=== PATIENT | male | born 1970 | race Caucasian/White ===

== ENCOUNTER → 2018-07-17 10:22 | Outpatient (REF) | payer MEDICAID, SELFPAY ==
[2018-07-17 14:05] LABS: Basophils % 0.3 % (0.1-2.0); Eosinophils # 0.2 K/mm3 (0.0-0.4); Eosinophils % 1.5 % (0.1-12.0); Hematocrit 50.3 % (42.0-52.0); Hemoglobin 16.7 g/dL (14.1-18.0); Lymphocytes # 1.7 K/mm3 (0.7-4.5); Mean Corpuscular HGB Conc 33.1 g/dL (31.8-35.4); Mean Corpuscular Hemoglobin 29.4 pg (27.0-31.2); Mean Corpuscular Volume 88.6 fl (80-94); Mean Platelet Volume 9.4 fl (7.4-10.4); Monocytes # 0.5 K/mm3 (0.1-1.0); Monocytes % 3.9 % (1.7-9.3); Neutrophils % 81.4 % (37.0-80.0); Platelet Count 318 K/mm3 (142-424); Red Blood Count 5.68 M/mm3 (4.60-6.20); Red Cell Distribution Width 13.9 % (11.5-17.5); White Blood Count 13.5 K/mm3 (4.8-10.8)
[2018-07-17 14:38] LABS: Alanine Aminotransferase 34 U/L (12-78); Albumin/Globulin Ratio 1.1 (1.1-1.8); Alkaline Phosphatase 107 U/L (46-116); Anion Gap 13.6 mEq/L (5-15); Aspartate Amino Transferase 19 U/L (15-37); Bilirubin,Total 0.4 mg/dL (0.2-1.0); Blood Urea Nitrogen 11 mg/dL (7-18); Calcium 8.9 mg/dL (8.5-10.1); Carbon Dioxide 26 mmol/L (21.0-32.0); Chloride 105 mmol/L (98-107); Chol/HDL Ratio 6.3 (1-3.5); Cholesterol 244 mg/dL (140-200); Creatinine,Serum 0.86 mg/dL (0.70-1.30); Estimated Glomerular Filt Rate 94 ml/min (>60); GFR (African American) 114 ML/MIN (>60); Globulin 3.6 gm/dl (1.3-3.2); Glucose 114 mg/dL (74-106); HDL Cholesterol 39 mg/dL (27-67); LDL Cholesterol 145 mg/dL (0-130); Potassium 4.6 mmoL/L (3.5-5.1); Sodium 140 mmol/L (136-145); T4 (Thyroxine) 5.3 ug/dl (4.7-13.3); Thyroid Stimulating Hormone 0.79 uIU/ml (0.358-3.740); Total Protein,Serum 7.6 gm/dL (6.4-8.2); Triglycerides 298 mg/dL (30-200); VLDL Cholesterol 60 mg/dL (0-40)
[2018-07-17 14:56] LABS: Hemoglobin A1C 5.8 % (0.0-7.0)
[2018-07-18 19:06] LABS: PSA, Free 0.22 ng/mL; Prostate Specific Ag 1.9 ng/mL (0.0-4.0); Vitamin D 25 Hydroxy 24.4 ng/mL (30.0-100.0)
== END ==
LOC: LAB 10:22
PROVIDERS: Visit Provider Nurse Practitioner Family
DX: R53.1 Weakness (principal); R51 Headache; R42 Dizziness and giddiness; R41.0 Disorientation, unspecified; I10 Essential (primary) hypertension
CPT/HCPCS: 80053; 80061; 82652; 83036; 84153; 84154; 84436; 84443; 85025

== ENCOUNTER → 2019-02-27 09:52 | Outpatient (CLI) | payer MEDICAID, SELFPAY ==
--- NOTE | 2019-02-27 10:01 | CT_ITS ---
CT chest w con HISTORY: ITS.REASON: RESTAGING LUNG CA ORDERING PHYSICIAN: Bryan Shaffer PATIENT AGE: 49 years COMPARISON: No prior studies available for comparison at this facility. Patient has had previous CT studies & therapy at . Technique: 75 cc. Optiray 350 IV contrast utilized. Axial images obtained. Sagittal and coronal reformatted images are also generated and reviewed. All CT scans at the facility use one or more dose reduction, viz: automated exposure control, ma/kV adjustment per patient size (including targeted exams where dose is matched to indication, i.e. head), or iterative reconstruction technique. FINDINGS: No prior studies for comparison. Previous studies apparently at [facility]. No significant mediastinal nor hilar adenopathy. No supraclavicular adenopathy. No axillary adenopathy. Enhancement is most optimal aorta. Normal caliber 3.5 cm. Heart appears normal in size. Coronary artery calcification most notable at LAD Scant pericardial fluid in inferior/anterior. Not significant. Right lung Elongated density is seen at the superior aspect superior segment RLL, axial image 39, . It measures just over 2 cm length on axial image x up to 6 mm AP & 9 mm height on sagittal view . There is some minimal linear scarring associated. May be residual from treated lesion possiblyq. Prior studies of the would be helpful to for comparison . There is a calcified 4 mm granuloma at right lung base just above right hemidiaphragm. Left Lower Lobe The density along the pleura, slightly nodular densities within this area at the medial aspect left lung base. Appears very similar to studies from CT abdomen 2015 which includes this area . Only slightly more pronounced The pleural-based slightly nodular area of density measures up to 3 cm AP overall x 2.4 cm height. An up to 14 mm wide. There is area of nodularity more posteriorly which measures 10 mm diameter with smaller area more anteriorly. These latter densities were seen on the 2015 CT abdomen with only incremental progression in interval. Unimpressive It could reflect a area of old scarring but requires correlation to the more recent [facility] studies Minimal minor central airway thickening. Upper abdomen. No significant findings. \ . Diffuse fatty changes of liver . Adrenals normal Pleural Spaces: No pleural thickening or effusion.. No evidence of pneumothorax. Bony Structures: No acute bony lesions. No rib or osseous lesions evident . No metastatic disease. Mild accentuated kyphosis thoracolumbar region. -----IMPRESSION 1. Elongated parenchymal density at the posterior/superior-most aspect of the superior segment RLL. . Measures roughly 20 mm length x 6 mm x 9 mm height. ... No prior studies for comparison. Modest feature overall-Possibly reflects treated lesion 2.. Density with minimal nodularity at far medial left lung base.. Similar to 2015 with Only scant incrementally progression..-Thus it may reflect scarring. No prominent change since that 2014.... Again correlation to recent [facility] studies would be helpful to correlate with their studies. . 3. No significant mediastinal nor hilar adenopathy.. ... Upper most abdomen unremarkable. Adrenals normal. ... No chest wall lesions. ...
== END ==
PROVIDERS: PCP Emergency Medicine; Visit Provider Internal Medicine Hematology & Oncology
DX: C34.90 Malignant neoplasm of unspecified part of unspecified bronchus or lung (principal); C71.9 Malignant neoplasm of brain, unspecified; D49.6 Neoplasm of unspecified behavior of brain
CPT/HCPCS: 71260; Q9967

== ENCOUNTER 2019-10-05 07:48 | Observation (INO) ==
[2019-10-05 08:32] LABS: Basophils % 0.2 % (0.1-2.0); Eosinophils # 0.5 K/mm3 (0.0-0.4); Eosinophils % 2.7 % (0.1-12.0); Hematocrit 38.1 % (42.0-52.0); Hemoglobin 12.8 g/dL (14.1-18.0); Lymphocytes # 1.1 K/mm3 (0.7-4.5); Lymphocytes % 6.2 % (10-50); Mean Corpuscular HGB Conc 33.5 g/dL (31.8-35.4); Mean Corpuscular Volume 94.7 fl (80-94); Mean Platelet Volume 8.2 fl (7.4-10.4); Monocytes # 0.6 K/mm3 (0.1-1.0); Monocytes % 3.3 % (1.7-9.3); Neutrophils # 15.7 K/mm3 (1.8-7.8); Neutrophils % 87.6 % (37.0-80.0); Platelet Count 589 K/mm3 (142-424); Red Blood Count 4.03 M/mm3 (4.60-6.20); Red Cell Distribution Width 15.4 % (11.5-17.5); White Blood Count 17.9 K/mm3 (4.8-10.8)
[2019-10-05 08:47] LABS: Eosinophils % 3 % (0-3); Lymphocytes % 4 % (10-50); Monocytes % 6 % (2-9); Neutrophils % 87 % (42-76); Total Cells Counted 100
[2019-10-05 08:48] LABS: RBC Morphology Normal
[2019-10-05 08:54] LABS: Alanine Aminotransferase 22 U/L (12-78); Albumin Level 3.6 gm/dL (3.4-5.0); Albumin/Globulin Ratio 0.8 (1.1-1.8); Alkaline Phosphatase 69 U/L (46-116); Anion Gap 17.7 mEq/L (5-15); Aspartate Amino Transferase 25 U/L (15-37); Bilirubin,Total 0.4 mg/dL (0.2-1.0); Blood Urea Nitrogen 31 mg/dL (7-18); Calcium 9.6 mg/dL (8.5-10.1); Carbon Dioxide 21 mmol/L (21.0-32.0); Chloride 95 mmol/L (98-107); Globulin 4.3 gm/dl (1.3-3.2); Glucose 145 mg/dL (74-106); Sodium 129 mmol/L (136-145); Total Protein,Serum 7.9 gm/dL (6.4-8.2)
--- NOTE | 2019-10-05 09:21 | Emergency Department Note ---
ED Disposition Clinical Impression: Metabolic acidosis, Hyponatremia, Intractable vomiting, Infectious diarrhea, Infection due to Norovirus species Disposition: Admitted As Inpatient Condition on Discharge: Serious Referrals: Mani Lund MD [Primary Care Provider] - - Critical Care Critical Care Time: No Attestation: On 10/05/19, the high probability of a clinically significant, sudden or life threatening deterioration of the following system(s) required my full and direct attention, intervention and personal management. The time I documented below is in addition to time spent performing reported procedures but includes the following listed in this critical care notation. Medical Decision Making - Medical Records Medical records reviewed: Yes: I reviewed the patient's medical records. - Shawn Inquiry Pt receiving controlled substance: No Vital Signs: 10/05/19 07:49 10/05/19 08:10 10/05/19 08:44 Temperature 98.2 F Temperature Source Oral Pulse Rate [Left Radial] 130 H 110 H 110 H Respiratory Rate 28 H 24 Blood Pressure [Right Arm] 99/66 L 71/39 L 105/64 L Blood Pressure Mean [Right Arm] 77 49 77 Blood Pressure Source [Right Arm] Automatic Cuff Blood Pressure Position [Right Arm] Sitting Sitting Supine 02 Sat by Pulse Oximetry 98 100 Oxygen Delivery Method Room Air Room Air 10/05/19 09:14 10/05/19 09:26 10/05/19 10:40 Temperature Temperature Source Pulse Rate [Left Radial] 104 H 104 H 107 H Respiratory Rate Blood Pressure [Right Arm] 108/76 L 111/58 L 128/89 Blood Pressure Mean [Right Arm] 86 75 102 Blood Pressure Source [Right Arm] Automatic Cuff Automatic Cuff Blood Pressure Position [Right Arm] Sitting Supine 02 Sat by Pulse Oximetry 100 99 Oxygen Delivery Method Room Air Room Air 10/05/19 11:05 Temperature Temperature Source Pulse Rate [Left Radial] 107 H Respiratory Rate Blood Pressure [Right Arm] 153/93 H Blood Pressure Mean [Right Arm] 113 Blood Pressure Source [Right Arm] Blood Pressure Position [Right Arm] Sitting 02 Sat by Pulse Oximetry 100 Oxygen Delivery Method Room Air - Lab Data Lab results reviewed: Yes: I reviewed the patient's lab results. Lab Results 10/05/19 07:55: Stl Aeromonas (PCR) Not detected, Stl C. cayetanensis PCR Not detected, Stool Rotavirus (PCR) Not detected, Stl Adenov F 40/41 PCR Not detected, Stool Astrovirus (PCR) Not detected, Stool Campylobacter PCR Not detected, Stl C.difficile Tox PCR Not detected, Stool Cryptosporidium PCR Not detected, Stl E.coli Shiga Tox PCR Not detected, Stool E coli O157 PCR Not detected, Stl Enterotoxigenic E PCR Not detected, Stool EPEC (PCR) Not detected, Stool EAEC (PCR) Not detected, Stl E. histolytica PCR Not detected, Stool Giardia Lamblia PCR Not detected, Stool Salmonella PCR Not detected, Stool Sapovirus (PCR) Not detected, Stl P. shigelloides PCR Not detected, Stl Shige lla/EIEC PCR Not detected, St Y.enterocolitica PCR Not detected, Stool Vibrio (PCR) Not detected, Stl Vibrio cholerae PCR Not detected, Stl Norovirus GI/GII PCR Detected A 10/05/19 08:00: WBC 17.9 H, RBC 4.03 L, Hgb 12.8 L, Hct 38.1 L, MCV 94.7 H, MCH 31.7 H, MCHC 33.5, RDW 15.4, Plt Count 589 H, MPV 8.2, Neut % (Auto) 87.6 H, Lymph % (Auto) 6.2 L, [place] % (Auto) 3.3, Eos % (Auto) 2.7, Baso % (Auto) 0.2, Neut # (Auto) 15.7 H, Lymph # (Auto) 1.1, [place] # (Auto) 0.6, Eos # (Auto) 0.5 H, Baso # (Auto) 0.0, Total Counted 100, Neutrophils % (Manual) 87 H, Lymphocytes % (Manual) 4 L, Monocytes % (Manual) 6, Eosinophils % (Manual) 3, Platelet Estimate Normal, RBC Morphology Normal 10/05/19 08:00: Sodium 129 L, Potassium 4.7, Chloride 95 L, Carbon Dioxide 21, Anion Gap 17.7 H, BUN 31 H, Creatinine 2.41 H, Estimated Creat Clear 51, Elizabeth mated GFR 29 L, Est GFR ( Amer) 35 L, Glucose 145 H, Calcium 9.6, Total Bilirubin 0.4, AST 25, ALT 22, Alkaline Phosphatase 69, Troponin I < 0.02, Total Protein 7.9, Albumin 3.6, Globulin 4.3 H, Albumin/Globulin Ratio 0.8 L 10/05/19 08:00: Lactate 3.3 H 10/05/19 10:10: Urine Color Yellow, Urine Appearance Clear, Urine pH 5.5, Ur Specific [place] 1.020, Urine Protein Negative, Urine Glucose (UA) Negative, Urine Ketones Negative, Urine Blood Negative, Urine Nitrate Negative, Urine Bilirubin Negative, Urine Urobilinogen 0.2, Ur Leukocyte Esterase Negative, Ur Squamous Epith Cells Occasional, Urine Bacteria Trace, Hyaline Casts 10-20 Result diagrams: 10/05/19 08:00 10/05/19 08:00 Orders (Tests/Meds): ED MEDICATIONS Discontinued Medications Generic Name Dose Route Start Last Admin Trade Name Freq PRN Reason Stop Dose Admin Hydromorphone HCl 1 mg 10/05/19 09:06 10/05/19 09:07 Dilaudid 2mg/Ml Syringe IV 10/05/19 09:07 1 mg ONCE ONE Administration Sodium Chloride 1,000 mls @ 999 mls/hr 10/05/19 08:45 10/05/19 08:20 Sod Chlor 0.9% 1000ml Bag IV 10/05/19 09:45 999 mls/hr .Q1H1M AARON Administration Sodium Chloride 1,000 mls @ 999 mls/hr 10/05/19 09:15 10/05/19 09:07 Sod Chlor 0.9% 1000ml Bag IV 10/05/19 10:15 999 mls/hr .Q1H1M AARON Administration Piperacillin Sod/Tazobactam 50 mls @ 100 mls/hr 10/05/19 09:15 10/05/19 09:23 Sod 3.375 gm/ Sodium Chloride IV 10/19/19 09:14 Not Given Q6H AARON Protocol Ertapenem 1 gm/ Sodium 50 mls @ 100 mls/hr 10/05/19 09:24 10/05/19 09:33 Chloride IV 10/05/19 09:25 100 mls/hr ONCE ONE Administration Protocol Sodium Chloride 1,000 mls @ 999 mls/hr 10/05/19 09:45 10/05/19 09:39 Sod Chlor 0.9% 1000ml Bag IV 10/05/19 10:45 999 mls/hr .Q1H1M AARON Administration Ondansetron HCl 4 mg 10/05/19 08:33 10/05/19 08:35 Zofran 4mg/2ml Vial IV 10/05/19 08:34 4 mg ONCE ONE Administration Ondansetron HCl 4 mg 10/05/19 09:06 10/05/19 09:07 Zofran 4mg/2ml Vial IV 10/05/19 09:07 4 mg ONCE ONE Administration Promethazine HCl 25 mg 10/05/19 08:34 10/05/19 08:37 Phenergan 25mg/Ml 1ml Vial IV 10/05/19 08:35 25 mg ONCE ONE Administration Sodium Chloride 25 ml 10/05/19 08:34 10/05/19 08:37 Sod Chlor 0.9% 25ml Bag IV 10/05/19 08:35 25 ml ONCE ONE Administration ORDERS Category Date Time Status CT abdomen pelvis wo con Stat Cat Scan 10/05/19 08:39 Taken Chest XR -- portable [XR chest portable] Stat Exams 10/05/19 08:17 Taken Troponin I Q3H Lab 10/05/19 11:30 Ordered Troponin I Q3H Lab 10/05/19 14:30 Ordered Blood Culture Stat Micro 10/05/19 08:06 Received - CT Data CT Scan: Abdomen, Pelvis Time Received: 11:[address] Reviewed: Yes: I have reviewed the patient's CT results Preliminary Findings: Abnormal Findings Narrative: Multiple loops of mildly prominent fluid-filled small bowel bowel measuring up to 2.8 cm in diameter. Findings could represent ileus although a component of partial obstruction cannot be excluded. - ECG Data Tracing #1 I reviewed this ECG and interpreted as documented below: Sinus tachycardia at a rate of 111 otherwise normal EKG. ECG initial impression date: 10/05/19 ECG initial impression time: 08:29 Normal Sinus Rhythm: Yes (Sinus tachycardia otherwise normal EKG) Nausea/Vomiting/Diarrhea HPI - General Chief complaint: Nausea/Vomiting/Diarrhea Stated complaint: Vomiting Time Seen by Provider: 10/05/19 07:50 Mode of Arrival: Ambulatory Limitations: No Limitations Description of Symptoms (Recalled from ER Triage Doc. by RN): to ed per pvt car with c/o diarrhea, vomiting starting this am. pt with hx of lymphoma currently getting chemo last tx 3 weeks ago. pt denies sick contacts. - History of Present Illness MD complaint: nausea, vomiting, diarrhea, abdominal pain Onset (ago): hour(s) (4) Description of Vomiting: food contents Associated Abdominal Pain: Yes Location of pain: diffuse Severity: severe Quality: cramping Consistency: constant Relieving factors: none Exacerbating factors: none Associated symptoms: malaise, nausea/vomiting, weakness - Related Data Home Medications Medication Instructions Recorded Confirmed RX: Folic Acid [Folic Acid 1mg 1 mg PO DAILY 10/05/19 10/05/19 tablet] RX: Lisinopril [Lisinopril 20mg 20 mg PO PM 10/05/19 10/05/19 Tab] RX: Omeprazole 40 mg PO DAILY 10/05/19 10/05/19 RX: diazePAM [Valium] 5 mg PO BID 10/05/19 10/05/19 RX: hydroCHLOROthiazide [HCTZ 25mg See Rx Instructions .ROUTE .COMPLEX 10/05/19 10/05/19 tab] Previous Rx's Medication Instructions Recorded metoclopramide 10 mg tablet 10 mg PO Q8H PRN #30 tab 06/29/19 ondansetron HCl 4 mg tablet 4 mg PO Q6H PRN #30 tab 06/29/19 promethazine 25 mg tablet 25 mg PO Q6H PRN #30 tab 06/29/19 acetaminophen 325 mg capsule 325 mg PO Q4H PRN #60 cap 07/01/19 sildenafil (pulmonary 20 mg PO DAILY PRN #10 tab 07/17/19 hypertension) 20 mg tablet hydrocodone 7.5 mg-acetaminophen 1 tab PO BID PRN #60 tab 09/14/19 325 mg tablet Allergies Allergy/AdvReac Type Severity Reaction Status Date / Time codeine [CODEINE] Allergy Unknown Verified 09/14/19 10:11 Penicillins [PENICILLINS] Allergy Unknown Verified 09/14/19 10:11 [facility] History - Hepatitis A Screen Drug use history?: No High risk sexual behaviors?: No History of sexually transmitted infection?: No Currently employed?: No Childcare worker?: No Do you have indoor plumbing?: Yes Do you have electricity?: Yes Attestation statement:: This patient has been screened for Hepatitis A risk factors. I have reviewed the patient's past medical history: Yes Medical History: Reports:: Cancer, Hypertension Denies:: Diabetes Mellitus Type 1, Diabetes Mellitus Type 2 Laterality Cases: Bilateral: Tonsillectomy Other Surgeries: Yes: No Previous Surgery, Cancer Surgery, Other Amputation: No Fractures: No Comment: brain surgery due to cancer, Has had radiation and Chemo - Social History Smoking Status: Former smoker Tobacco Type: cigarettes # Packs/Day (cigarettes): 2 Alcohol Intake: never Alcohol Intake Frequency:: holidays/special occasions only Substance Use Type: marijuana Occupational Status: disabled Family Hx:: Diabetes ROS Obtained: Yes All systems reviewed & no additional complaints - Constitutional Constitutional: Reports fatigue, Reports malaise - Eyes Eyes: Reports system reviewed and no additional complaints, except as docu - ENT Ears, Nose, Mouth, and Throat: Reports system reviewed and no additional complaints, except as docu - Cardiovascular Cardiovascular: Reports system reviewed and no additional complaints, except as docu - Respiratory Respiratory: Yes system reviewed and no additional complaints, except as docu - Gastrointestinal Gastrointestingal: Reports: abdominal pain, diarrhea, nausea, vomiting - Genitourinary Male Genitourinary: Reports system reviewed and no additional complaints, except as docu - Musculoskeletal Musculoskeletal: Reports system reviewed and no additional complaints, except as docu - Integumentary/Breasts Skin/Breast: Reports system reviewed and no additional complaints, except as docu - Neurologic Neurologic: Reports system reviewed and no additional complaints, except as docu - Endocrine Endocrine: Reports system reviewed and no additional complaints, except as docu - Hematologic/Lymphatic Henatologic/Lymphatic: Reports system reviewed and no additional complaints, except as docu - Allergic/Immunologic Allergic/Immunologic: Reports system reviewed and no additional complaints, except as docu Physical Exam - General General appearance: alert, in no apparent distress - Head Head exam: atraumatic, normocephalic, normal inspection - Eye Eye exam: Present: normal appearance, PERRL, EOMI - ENT ENT exam: Present: normal exam, normal oropharynx, mucous membranes moist, TM's normal bilaterally, normal external ear exam - Neck Neck exam: Present: normal inspection, full ROM, trachea midline. Absent: meningismus, lymphadenopathy - Chest Chest inspection: Present: normal inspection, symmetric chest wall rise. Absent: tenderness - Respiratory Respiratory exam: Present: normal lung sounds bilaterally. Absent: respiratory distress - Cardiovascular Cardiovascular exam: Present: normal rhythm, tachycardia, normal heart sounds. Absent: systolic murmur, diastolic murmur, rubs, gallop, JVD - Abdominal Exam Abdominal exam: Present: soft, tenderness, diminished bowel sounds. Absent: distention, guarding Abdominal tenderness: Present: diffuse - Extremities Exam Extremities exam: Present: normal inspection, full ROM, normal capillary refill. Absent: calf tenderness - Back Exam Back exam: Present: normal inspection. Absent: tenderness - Neurological Exam Neurological exam: Present: alert, oriented X3, CN II-XII intact, normal gait - Psychiatric Psychiatric exam: Present: normal affect, normal mood - Skin Skin exam: Present: warm, dry, intact, normal color - Lymphatic Lymphatic Findings: no adenopathy
[2019-10-05 10:18] LABS: Microscopic, Urine URINE MICROSCOPIC (MICROSCOPIC)
[2019-10-05 10:34] LABS: Appearance,Urine CLEAR (Clear); Bilirubin,Urine Negative (Negative); Blood, Urine Negative (Negative); Color,Urine YELLOW (Yellow); Glucose,Urine (UA) Negative (Negative); Ketones,Urine Negative (Negative); Leukocyte Esterase,Urine Negative (Negative); PH,Urine 5.5 (5.0-8.5); Protein,Urine Negative (Negative); Urobilinogen,Urine 0.2 EU/dl (0.2)
[2019-10-05 10:46] LABS: Bacteria,Urine Trace /lpf; Squamous Epithelial Cell,Urine Occasional #/hpf (0-5)
--- NOTE | 2019-10-05 12:47 | History & Physical Report ---
*Admission Date: 10/05/19 *Chief complaint: vomiting/diarrhea *History of present illness: this wm presented to ed with 2 days of diarrhea and vomiting - decreased po intake -pt was seen in the ed ed per pvt car with c/o diarrhea, vomiting starting this am. pt with hx of lymphoma currently getting chemo last tx 3 weeks ago. pt denies sick contacts- pt with abn labs and ct of abd and he was unable to tolerate po fluids in the ed and was admitted - pt is on chemotherapy- [facility] History I have reviewed the patient's past medical history: Yes Medical History: Reports:: Cancer, Hypertension Denies:: Diabetes Mellitus Type 1, Diabetes Mellitus Type 2 *Have you ever received a pneumonia vaccine?: No *Have you received a flu vaccine this season?: No Laterality Cases: Bilateral: Tonsillectomy Other Surgeries: Yes: No Previous Surgery, Cancer Surgery, Other Amputation: No Fractures: No - *Social History Smoking Status: Former smoker Tobacco Type: cigarettes # Packs/Day (cigarettes): 2 Alcohol Intake: never Alcohol Intake Frequency:: holidays/special occasions only Substance Use Type: marijuana *Occupational Status:: disabled *Travel in the last 8 weeks: None Family Hx:: Diabetes Review of Systems - Review of Systems Review of systems:: pertinent systems reviewed and negative unless documented below - Constitutional Denies fever(s) - Eyes Denies change in vision - ENT Denies sore throat - *Cardiovascular Denies chest pain at rest - *Respiratory Denies cough - *Gastrointestinal Reports abdominal pain, Reports loose stools, Reports nausea, Reports vomiting, Denies black, tarry stools - *Genitourinary Denies side pain - *Musculoskeletal Denies joint pain - Integumentary/Breasts Denies rash - *Neurologic Denies localized weakness, Denies headache(s), Denies seizure-like activity - Psychiatric Denies confusion Meds Home Medications Medication Instructions Recorded Confirmed Type metoclopramide 10 mg tablet 10 mg PO Q8H PRN #30 tab 06/29/19 10/05/19 Rx ondansetron HCl 4 mg tablet 4 mg PO Q6H PRN #30 tab 06/29/19 10/05/19 Rx promethazine 25 mg tablet 25 mg PO Q6H PRN #30 tab 06/29/19 10/05/19 Rx acetaminophen 325 mg capsule 325 mg PO Q4H PRN #60 cap 07/01/19 10/05/19 Rx sildenafil (pulmonary 20 mg PO DAILY PRN #10 tab 07/17/19 10/05/19 Rx hypertension) 20 mg tablet hydrocodone 7.5 mg-acetaminophen 1 tab PO BID PRN #60 tab 09/14/19 10/05/19 Rx 325 mg tablet Cetirizine HCl [Allergy Relief] 10 mg PO DAILY 10/05/19 10/05/19 History Folic Acid [Folic Acid 1mg tablet] 1 mg PO DAILY 10/05/19 10/05/19 History Lisinopril [Lisinopril 20mg Tab] 20 mg PO DAILY 10/05/19 10/05/19 History Omeprazole 40 mg PO DAILY 10/05/19 10/05/19 History diazePAM [Valium] 5 mg PO BID 10/05/19 10/05/19 History hydroCHLOROthiazide [HCTZ 25mg 25 mg PO DAILY 10/05/19 10/05/19 History tab] Allergies Allergy/AdvReac Type Severity Reaction Status Date / Time codeine [CODEINE] Allergy Unknown Verified 09/14/19 10:11 Penicillins [PENICILLINS] Allergy Unknown Verified 09/14/19 10:11 Exam Vital signs and Labs for Last 24 Hours: Temp Pulse Resp BP Pulse Ox 98.5 F 121 H 20 134/93 H 99 10/05/19 12:25 10/05/19 12:25 10/05/19 12:25 10/05/19 12:25 10/05/19 12:25 Laboratory Results - last 24 hr 10/05/19 07:55: Stl Aeromonas (PCR) Not detected, Stl C. cayetanensis PCR Not detected, Stool Rotavirus (PCR) Not detected, Stl Adenov F 40/41 PCR Not detected, Stool Astrovirus (PCR) Not detected, Stool Campylobacter PCR Not detected, Stl C.difficile Tox PCR Not detected, Stool Cryptosporidium PCR Not detected, Stl E.coli Shiga Tox PCR Not detected, Stool E coli O157 PCR Not detected, Stl Enterotoxigenic E PCR Not detected, Stool EPEC (PCR) Not detected, Stool EAEC (PCR) Not detected, Stl E. histolytica PCR Not detected, Stool Giardia Lamblia PCR Not detected, Stool Salmonella PCR Not detected, Stool Sapovirus (PCR) Not detected, Stl P. shigelloides PCR Not detected, Stl Shigella/EIEC PCR Not detected, St Y.enterocolitica PCR Not detected, Stool Vibrio (PCR) Not detected, Stl Vibrio cholerae PCR Not detected, Stl Norovirus GI/GII PCR Detected A 10/05/19 08:00: WBC 17.9 H, RBC 4.03 L, Hgb 12.8 L, Hct 38.1 L, MCV 94.7 H, MCH 31.7 H, MCHC 33.5, RDW 15.4, Plt Count 589 H, MPV 8.2, Neut % (Auto) 87.6 H, Lymph % (Auto) 6.2 L, [place] % (Auto) 3.3, Eos % (Auto) 2.7, Baso % (Auto) 0.2, Neut # (Auto) 15.7 H, Lymph # (Auto) 1.1, [place] # (Auto) 0.6, Eos # (Auto) 0.5 H, Baso # (Auto) 0.0, Total Counted 100, Neutrophils % (Manual) 87 H, Lymphocytes % (Manual) 4 L, Monocytes % (Manual) 6, Eosinophils % (Manual) 3, Platelet Estimate Normal, RBC Morphology Normal 10/05/19 08:00: Sodium 129 L, Potassium 4.7, Chloride 95 L, Carbon Dioxide 21, Anion Gap 17.7 H, BUN 31 H, Creatinine 2.41 H, Estimated Creat Clear 51, Estimated GFR 29 L, Est GFR ( Amer) 35 L, Glucose 145 H, Calcium 9.6, Total Bilirubin 0.4, AST 25, ALT 22, Alkaline Phosphatase 69, Troponin I < 0.02, Total Protein 7.9, Albumin 3.6, Globulin 4.3 H, Albumin/Globulin Ratio 0.8 L 10/05/19 08:00: Lactate 3.3 H 10/05/19 10:10: Urine Color Yellow, Urine Appearance Clear, Urine pH 5.5, Ur Specific [place] 1.020, Urine Protein Negative, Urine Glucose (UA) Negative, Urine Ketones Negative, Urine Blood Negative, Urine Nitrate Negative, Urine Bilirubin Negative, Urine Urobilinogen 0.2, Ur Leukocyte Esterase Negative, Ur Squamous Epith Cells Occasional, Urine Bacteria Trace, Hyaline Casts 10-20 I & O for Last 24 hours: Intake & Output 11/23/19 11/24/19 11/25/19 11/26/19 11:59 11:59 11:59 11:59 Intake Total 2099 Balance 2099 Weight 226 lb 4 oz - Constitutional no acute distress, obese - *Routine HEENT Exam Head: Present: normocephalic Eye: Present: EOMI, PERRL. Absent: conjunctival icterus ENT: Present: mucous membranes dry - *Routine Neck Exam Present: supple. Absent: JVD - *Routine Respiratory Exam Present: CTA bilaterally - *Routine Cardiovascular Exam Present: RRR, murmur - *Routine Abdominal Exam Present: soft, tenderness. Absent: distended, rebound - *Routine Extremities Exam Present: full ROM. Absent: calf tenderness - *Routine Skin Exam Present: intact - *Routine Neurological Exam Present: alert, oriented X3, CN II-XII intact - Routine Psychiatric Exam Present: normal affect Assessment and Plan (1) Enteritis due to Norovirus Current visit: Yes Status: Acute Category: Medical Code(s): A08.11 - Acute gastroenteropathy due to [place]otta agent (2) KEKE (acute kidney injury) Current visit: Yes Status: Acute Category: Medical Code(s): N17.9 - Acute kidney failure, unspecified (3) Severe sepsis with acute organ dysfunction Current visit: Yes Status: Acute Category: Medical Code(s): A41.9 - Sepsis, unspecified organism; R65.20 - Severe sepsis without septic shock (4) Lung cancer metastatic to brain Current visit: Yes Status: Acute Category: Medical Code(s): C34.90 - Malignant neoplasm of unspecified part of unspecified bronchus or lung; C79.31 - Secondary malignant neoplasm of brain
--- NOTE | 2019-10-05 15:41 | Pharmacy Consult Notes ---
[facility] Pharmacy VTE Monitoring - Patient Demographics Admission date: 10/05/19 Report Date: 10/05/19 Time: 15:41 Allergies/Adverse Reactions: Patient Allergies codeine [CODEINE] Allergy (Unknown, Verified 09/14/19 10:11) Penicillins [PENICILLINS] Allergy (Unknown, Verified 09/14/19 10:11) Height: 1.75 m Weight: 102.625 kg Patient Problems: Current Active Problems Metabolic acidosis (Acute) Hyponatremia (Acute) Intractable vomiting (Acute) Infectious diarrhea (Acute) Infection due to Norovirus species (Acute) - VTE Risk Labs: VTE Related Lab Results Hgb 12.8 g/dL (14.1-18.0) L 10/05/19 08:00 Hct 38.1 % (42.0-52.0) L 10/05/19 08:00 Plt Count 589 K/mm3 (142-424) H 10/05/19 08:00 BUN 31 mg/dL (7-18) H 10/05/19 08:00 Creatinine 2.41 mg/dL (0.70-1.30) H 10/05/19 08:00 Estimated Creat Clear 51 mL/min (50-200) 10/05/19 08:00 - Prophylaxis VTE Prophylaxis Ordered?: Yes Types of VTE Prophylaxis: TEDS Knee High Location of Applied Device: Bilateral Lower Extremeties - VTE Diagnosis Confirmed Treatment or plan recommended: Continue Current Treatment
--- NOTE | 2019-10-05 16:43 | Electrocardiograph Report ---
APPROVED REPORT Exam: Resting ECG HR:111 bpm ECG Measurements Heart Rate 111 AXES MS 142 P 54 QRSd 82 QRS 62 QT 326 T40 QTc 443 <Conclusion> Sinus tachycardia Otherwise normal ECG Electronically signed by : Flo Jung, 10/05/2019 16:42:41
[2019-10-06 06:05] LABS: Basophils % 0.3 % (0.1-2.0); Eosinophils # 0.2 K/mm3 (0.0-0.4); Eosinophils % 4.2 % (0.1-12.0); Hematocrit 30.1 % (42.0-52.0); Lymphocytes # 1.3 K/mm3 (0.7-4.5); Lymphocytes % 22.2 % (10-50); Mean Corpuscular HGB Conc 31.7 g/dL (31.8-35.4); Mean Corpuscular Volume 97.8 fl (80-94); Mean Platelet Volume 7.2 fl (7.4-10.4); Monocytes # 0.3 K/mm3 (0.1-1.0); Monocytes % 5.9 % (1.7-9.3); Neutrophils % 67.5 % (37.0-80.0); Platelet Count 330 K/mm3 (142-424); Red Blood Count 3.08 M/mm3 (4.60-6.20); Red Cell Distribution Width 15.4 % (11.5-17.5); White Blood Count 5.9 K/mm3 (4.8-10.8)
[2019-10-06 06:13] LABS: Hemoglobin 9.5 g/dL (14.1-18.0)
[2019-10-06 06:16] LABS: Albumin Level 2.5 gm/dL (3.4-5.0); Albumin/Globulin Ratio 0.8 (1.1-1.8); Anion Gap 12.2 mEq/L (5-15); Bilirubin,Total 0.2 mg/dL (0.2-1.0); Globulin 3.1 gm/dl (1.3-3.2); Phosphorous 2.1 mg/dL (2.4-4.9); Total Protein,Serum 5.6 gm/dL (6.4-8.2)
[2019-10-06 06:24] LABS: Calcium 7.6 mg/dL (8.5-10.1)
--- NOTE | 2019-10-06 08:37 | Discharge Summary ---
General - General Admission date:: 10/05/19 Discharge date: 10/06/19 HPI HPI: 49-year-old male patient sitting up in bed resting quietly, respirations easy even. He reports he had no further nausea, vomiting, or diarrhea. We discussed his discharge this afternoon he is agreeable to this and will follow-up in the office in 1 to 2 weeks. this wm presented to ed with 2 days of diarrhea and vomiting - decreased po intake -pt was seen in the ed ed per pvt car with c/o diarrhea, vomiting starting this am. pt with hx of lymphoma currently getting chemo last tx 3 weeks ago. pt denies sick contacts- pt with abn labs and ct of abd and he was unable t o tolerate po fluids in the ed and was admitted - pt is on chemotherapy- Hospital Course Hospital Course: 49-year-old male patient sitting up in bed resting quietly, respirations easy even. He reports he had no further nausea, vomiting, or diarrhea. We discussed his discharge this afternoon he is agreeable to this and will follow-up in the office in 1 to 2 weeks. this wm presented to ed with 2 days of diarrhea and vomiting - decreased po intake -pt was seen in the ed ed per pvt car with c/o diarrhea, vomiting starting this am. pt with hx of lymphoma currently getting chemo last tx 3 weeks ago. pt denies sick contacts- pt with abn labs and ct of abd and he was unable to tolerate po fluids in the ed and was admitted - pt is on chemotherapy-(Per Ирина Lund) He did receive Zosyn IV, fluids IV, and Zofran in the ED. He received fluids throughout the night. His BUN/creatinine has decreased from 31/2.41 to 20/1.26. He was positive for norovirus in his stool and has been instructed in importance of handwashing and include family also 10/05 CXR: IMPRESSION: No acute findings. Dictated by: Dr. Toledo 10/05 Abd/Pelvis CT: IMPRESSION: 1. Fluid-filled loops of small bowel along with mildly thickened colon consistent with enterocolitis. 2. Cholelithiasis 3. Mildly prominent appendix. Repeat exam with IV and oral contrast may be of further value if clinical findings are indeterminate Dictated by: Dr. Toledo Objective Vital signs: Temp Pulse Resp BP Pulse Ox 98.7 F 112 H 18 113/77 98 10/06/19 07:58 10/06/19 07:58 10/06/19 07:58 10/06/19 07:58 10/06/19 07:58 no acute distress - *Routine HEENT Exam Head: Present: normocephalic, atraumatic Eye: Present: EOMI, PERRL, normal accommodation ENT: Present: mucous membranes dry - *Routine Neck Exam Present: full ROM, JVD, trachea midline. Absent: tracheal deviation - *Routine Respiratory Exam Present: decreased breath sounds, CTA bilaterally - *Routine Cardiovascular Exam Present: RRR, murmur - *Routine Abdominal Exam Present: soft, normoactive bowel sounds, tenderness. Absent: firm - *Routine Extremities Exam Present: full ROM, pulses intact. Absent: calf tenderness - Routine Back/Spine/Pelvis Exam Back/Spine: Present: full ROM. Absent: CVA tenderness - *Routine Skin Exam Present: intact. Absent: cyanosis, erythema - *Routine Neurological Exam Present: alert, oriented X3, CN II-XII intact. Absent: pronator drift, altered mental status - Routine Psychiatric Exam Present: normal affect, normal thought process. Absent: homicidal ideation, auditory hallucinations, visual hallucinations Results Labs on day of discharge: Labs from last 24 hours 10/06/19 10/06/19 10/05/19 05:52 05:52 15:40 WBC 5.9 D RBC 3.08 L Hgb 9.5 L D Hct 30.1 L MCV 97.8 H MCH 31.0 MCHC 31.7 L RDW 15.4 Plt Count 330 D MPV 7.2 L Neut % (Auto) 67.5 Lymph % (Auto) 22.2 [place] % (Auto) 5.9 Eos % (Auto) 4.2 Baso % (Auto) 0.3 Neut # (Auto) 4.0 Lymph # (Auto) 1.3 [place] # (Auto) 0.3 Eos # (Auto) 0.2 Baso # (Auto) 0.0 Total Counted Neutrophils % (Manual) Lymphocytes % (Manual) Monocytes % (Manual) Eosinophils % (Manual) Platelet Estimate RBC Morphology Sodium 134 L Potassium 4.2 Chloride 105 Carbon Dioxide 21 Anion Gap 12.2 BUN 20 H D Creatinine 1.26 D Estimated Creat Clear 101 Estimated GFR 60 Est GFR ( Amer) 73 D Glucose 125 H Lactate 2.5 H Calcium 7.6 L D Phosphorus 2.1 L Magnesium 1.5 Total Bilirubin 0.2 AST 13 L D ALT 14 D Alkaline Phosphatase 49 Troponin I Total Protein 5.6 L D Albumin 2.5 L D Globulin 3.1 Albumin/Globulin Ratio 0.8 L Urine Color Urine Appearance Urine pH Ur Specific Aubrey Urine Protein Urine Glucose (UA) Urine Ketones Urine Blood Urine Nitrate Urine Bilirubin Urine Urobilinogen Ur Leukocyte Esterase Ur Squamous Epith Cells Urine Bacteria Hyaline Casts Stl Aeromonas (PCR) Stl C. cayetanensis PCR Stool Rotavirus (PCR) Stl Adenov F 40/ PCR Stool Astrovirus (PCR) Stool Campylobacter PCR Stl C.difficile Tox PCR Stool Cryptosporidium PCR Stl E.coli Shiga Tox PCR Stool E coli O157 PCR Stl Enterotoxigenic E PCR Stool EPEC (PCR) Stool EAEC (PCR) Stl E. histolytica PCR Stool Giardia Lamblia PCR Stool Salmonella PCR Stool Sapovirus (PCR) Stl P. shigelloides PCR Stl Shigella/EIEC PCR St Y.enterocolitica PCR Stool Vibrio (PCR) Stl Vibrio cholerae PCR Stl Norovirus GI/GII PCR 10/05/19 10/05/19 10/05/19 13:13 10:10 08:00 WBC RBC Hgb Hct MCV MCH MCHC RDW Plt Count MPV Neut % (Auto) Lymph % (Auto) [place] % (Auto) Eos % (Auto) Baso % (Auto) Neut # (Auto) Lymph # (Auto) [place] # (Auto) Eos # (Auto) Baso # (Auto) Total Counted Neutrophils % (Manual) Lymphocytes % (Manual) Monocytes % (Manual) Eosinophils % (Manual) Platelet Estimate RBC Morphology Sodium Potassium Chloride Carbon Dioxide Anion Gap BUN Creatinine Estimated Creat Clear Estimated GFR Est GFR ( Amer) Glucose Lactate 2.8 H 3.3 H Calcium Phosphorus Magnesium Total Bilirubin AST ALT Alkaline Phosphatase Troponin I Total Protein Albumin Globulin Albumin/Globulin Ratio Urine Color Yellow Urine Appearance Clear Urine pH 5.5 Ur Specific Aubrey 1.020 Urine Protein Negative Urine Glucose (UA) Negative Urine Ketones Negative Urine Blood Negative Urine Nitrate Negative Urine Bilirubin Negative Urine Urobilinogen 0.2 Ur Leukocyte Esterase Negative Ur Squamous Epith Cells Occasional Urine Bacteria Trace Hyaline Casts 10-20 Stl Aeromonas (PCR) Stl C. cayetanensis PCR Stool Rotavirus (PCR) Stl Adenov F 40/41 PCR Stool Astrovirus (PCR) Stool Campylobacter PCR Stl C.difficile Tox PCR Stool Cryptosporidium PCR Stl E.coli Shiga Tox PCR Stool E coli O157 PCR Stl Enterotoxigenic E PCR Stool EPEC (PCR) Stool EAEC (PCR) Stl E. histolytica PCR Stool Giardia Lamblia PCR Stool Salmonella PCR Stool Sapovirus (PCR) Stl P. shigelloides PCR Stl Shigella/EIEC PCR St Y.enterocolitica PCR Stool Vibrio (PCR) Stl Vibrio cholerae PCR Stl Norovirus GI/GII PCR 10/05/19 10/05/19 10/05/19 08:00 08:00 07:55 WBC 17.9 H RBC 4.03 L Hgb 12.8 L Hct 38.1 L MCV 94.7 H MCH 31.7 H MCHC 33.5 RDW 15.4 Plt Count 589 H MPV 8.2 Neut % (Auto) 87.6 H Lymph % (Auto) 6.2 L [place] % (Auto) 3.3 Eos % (Auto) 2.7 Baso % (Auto) 0.2 Neut # (Auto) 15.7 H Lymph # (Auto) 1.1 [place] # (Auto) 0.6 Eos # (Auto) 0.5 H Baso # (Auto) 0.0 Total Counted 100 Neutrophils % (Manual) 87 H Lymphocytes % (Manual) 4 L Monocytes % (Manual) 6 Eosinophils % (Manual) 3 Platelet Estimate Normal RBC Morphology Normal Sodium 129 L Potassium 4.7 Chloride 95 L Carbon Dioxide 21 Anion Gap 17.7 H BUN 31 H Creatinine 2.41 H Estimated Creat Clear 51 Estimated GFR 29 L Est GFR ( Amer) 35 L Glucose 145 H Lactate Calcium 9.6 Phosphorus Magnesium Total Bilirubin 0.4 AST 25 ALT 22 Alkaline Phosphatase 69 Troponin I < 0.02 Total Protein 7.9 Albumin 3.6 Globulin 4.3 H Albumin/Globulin Ratio 0.8 L Urine Color Urine Appearance Urine pH Ur Specific Aubrey Urine Protein Urine Glucose (UA) Urine Ketones Urine Blood Urine Nitrate Urine Bilirubin Urine Urobilinogen Ur Leukocyte Esterase Ur Squamous Epith Cells Urine Bacteria Hyaline Casts Stl Aeromonas (PCR) Not detected Stl C. cayetanensis PCR Not detected Stool Rotavirus (PCR) Not detected Stl Adenov PCR Not detected Stool Astrovirus (PCR) Not detected Stool Campylobacter PCR Not detected Stl C.difficile Tox PCR Not detected Stool Cryptosporidium PCR Not detected Stl E.coli Shiga Tox PCR Not detected Stool E coli O157 PCR Not detected Stl Enterotoxigenic E PCR Not detected Stool EPEC (PCR) Not detected Stool EAEC (PCR) Not detected Stl E. histolytica PCR Not detected Stool Giardia Lamblia PCR Not detected Stool Salmonella PCR Not detected Stool Sapovirus (PCR) Not detected Stl P. shigelloides PCR Not detected Stl Shigella/EIEC PCR Not detected St Y.enterocolitica PCR Not detected Stool Vibrio (PCR) Not detected Stl Vibrio cholerae PCR Not detected Stl Norovirus GI/GII PCR Detected A - Additional Comments Rounded with Dr. Lund, all orders per Dr. Lund 1. We will discharge home today 2. We will decrease lisinopril to 10 mg daily, hold HCTZ for 3 days then resume normal doses 3. We will follow-up in office in 1 to 2 weeks 4. We will encouraged to have blood pressure monitor at home and monitored frequently DS: Diagnosis - Discharge Diagnosis (1) Enteritis due to Norovirus Status: Acute (2) KEKE (acute kidney injury) Status: Acute (3) Severe sepsis with acute organ dysfunction Status: Acute (4) Lung cancer metastatic to brain Status: Acute Discharge Plan - Patient Discharge Instructions ACTIVITY: Continue current activity Patient Instructions: Norovirus Infection, DI for Norovirus Infection - Follow up Plan Follow up with: Mani Lund MD [Primary Care Provider] - Disposition: Home, Self-Intermediate Medications: Home Medications Medication Instructions Recorded Confirmed Type hydrocodone 7.5 mg-acetaminophen 1 tab PO BID PRN #60 tab 09/14/19 10/05/19 Rx 325 mg tablet Cetirizine HCl [Allergy Relief] 10 mg PO DAILY 10/05/19 10/05/19 History Folic Acid [Folic Acid 1mg tablet] 1 mg PO DAILY 10/05/19 10/05/19 History Lisinopril [Lisinopril 20mg Tab] 20 mg PO DAILY 10/05/19 10/05/19 History Omeprazole 40 mg PO DAILY 10/05/19 10/05/19 History diazePAM [Valium] 5 mg PO BID 10/05/19 10/05/19 History hydroCHLOROthiazide [HCTZ 25mg 25 mg PO DAILY 10/05/19 10/05/19 History tab] Acetaminophen 325 mg PO Q8HP PRN 10/06/19 10/06/19 History Sildenafil Citrate 20 mg PO NEEDED PRN 10/06/19 10/06/19 History raNITIdine HCl [Ranitidine HCl] 150 mg PO BID 10/06/19 10/06/19 History Prescriptions/Medication Reconciliation: Continued hydrocodone 7.5 mg-acetaminophen 325 mg tablet 1 tab PO BID PRN #60 tab PRN Reason: pain Lisinopril [Lisinopril 20mg Tab] 20 mg PO DAILY hydroCHLOROthiazide [HCTZ 25mg tab] 25 mg PO DAILY Folic Acid [Folic Acid 1mg tablet] 1 mg PO DAILY diazePAM [Valium] 5 mg PO BID raNITIdine HCl [Ranitidine HCl] 150 mg PO BID Omeprazole 40 mg PO DAILY Cetirizine HCl [Allergy Relief] 10 mg PO DAILY Acetaminophen 325 mg PO Q8HP PRN PRN Reason: Pain Sildenafil Citrate 20 mg PO NEEDED PRN PRN Reason: sexual activity - Problem Reconciliation Problems Reviewed?: Yes
--- OUTSIDE RECORDS SUMMARY | 2019-10-06 15:26 | External Medical Summary | Continuity of Care Document ---
:1970 Author Organization [facility] Address [address] [facility] [address] [place] [address] Phone Care Team Providers Name Role Phone Saeed Lund Attending Provider Antony Primary Care Provider Saeed Lund Primary Care Provider Allergies, Adverse Reactions, Alerts Allergen Type Severity Reaction Last Verified Status Updated codeine Allergy Unknown Yes Active Penicillins Allergy Unknown Yes Active Medications Medication Status Dose Units Route Sig Qty Days Start End Instruct ions Date Date Hydrocodone/Acetam Active 1 TAB Oral Twice a 60 November x2 inophen day 2018 10:35am Diazepam Active 5 MG Oral Twice a November 2018 10:19am Folic Acid Active 1 MG Oral Daily October 05, 2019 10:19am Hydrochlorothiazid Active 25 MG Oral Daily September TAKE 1 TABLET e , BY MOUTH ONCE 2018 DAILY 10:19am Lisinopril Active 20 MG Oral Daily October 05, 2019 10:19am Omeprazole Active 40 MG Oral Daily October 05, 2019 10:19am Cetirizine Hcl Active 10 MG Oral Daily October 05, 2019 12:32pm Acetaminophen Active 325 MG Oral Every 8 November hours , as 2019 needed 8:03am Ranitidine Hcl Active 150 MG Oral Twice a September day 2018 8:03am Sildenafil Citrate Active 20 MG Oral As November needed 2018 8:38am Problems Active Problems Medical Problem Onset Date Status KEKE (acute kidney injury) Active Enteritis due to Norovirus Active 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 Visual changes Active Intracranial neoplasm Active Erectile dysfunction Active Severe sepsis with acute organ Active dysfunction Anxiety Active Confusion Active Headache Active Hyponatremia Active Tachycardia Active Vertigo Active Weakness Active Altered mental status Active Neuropraxia of right upper Active extremity Neoplasm of brain causing mass Active effect on adjacent structures Intractable vomiting Active Metabolic acidosis Active Hypertension Active Infectious diarrhea Active Infection due to Norovirus species Activ e Procedures Procedure Date Performed Status XR chest portable October 05, [address] abdomen pelvis wo con October 05, 2019 completed ECG initial Erich October 05, 2019 completed Blood Culture October 05, 2019 active Relevant Diagnostic Tests and/or Laboratory Data Laboratory Results Test Date/Time Result Interpretation Reference Result Perfo rming Range Comment Site White Blood September 5.9 K/mm3 4.8-10.8 Delta: 17.9 [facility], [address] [place] [address] E Count 2018 on Ramila GRAY 18544 5:52am 10/05/19-0800 Red Blood September 3.08 M/mm3 4.60-6.20 [place] [address] E Count 2018 Ramila GRAY 95714 5:52am Hemoglobin September 9.5 g/dL 14.1-18.0 Delta: 12.8 [place] [address] E 2018 on Ramila GRAY 94065 5:52am 10/05/19-799 Hematocrit September 30.1 % 42.0-52.0 [place] [address] E 2018 Ramila GRAY 16730 5:52am Mean September 97.8 fl 80-94 [place] [address] E Corpuscular 2018 Joanna GRAY 80236 Volume 5:52am Mean September 31.0 pg 27.0-31.2 [place] [address] E Corpuscular 2018 Joannamela GRAY 79366 Hemoglobin 5:52am Mean September 31.7 g/dL 31.8-35.4 [place] [address] E Corpuscular 2018 Joannamela GRAY 13025 Hemoglobin 5:52am Concent Red Cell September 15.4 % 11.5-17.5 [facility], [address] [place] [address] 36 E Distribution 2018 Singh GRAY 47174 Width 5:52am Platelet September 330 K/mm3 142-424 Delta: 589 on [facility], [address] [place] [address] 36 E Count 10/05/-0800 Gualberto GRAY 24800 5:52am Mean Platelet September 7.2 fl 7.4-10.4 [facility], [address] [place] [address] 36 E Volume 2018 Ramila GRAY 78386 5:52am Neutrophils September 67.5 % 37.0-80.0 [facility], [address] [place] [address] 36 E (%) (Auto) 2018 Leilani GRAY 65729 5:52am Lymphocytes September 22.2 % 10-50 [place] [address] E (%) (Auto) 2018 Leilani GRAY 33491 5:52am Monocytes (%) September 5.9 % 1.7-9.3 [facility], [address] [place] [address] 36 E (Auto) 2018 Ramila GRAY 52300 5:52am Eosinophils September 4.2 % 0.1-12.0 [facility], [address] [place] [address] 36 E (%) (Auto) 2018 Leilani GRAY 48580 5:52am Basophils (%) September 0.3 % 0.1-2.0 [facility], [address] [place] [address] 36 E (Auto) 2018 [place] [address] 5:52am Neutrophils # September 4.0 K/mm3 1.8-7.8 [facility], [address] [place] [address] 36 E (Auto) 2018 Ramila GRAY 14561 5:52am Lymphocytes # September 1.3 K/mm3 0.7-4.5 [facility], [address] [place] [address] 36 E (Auto) 2018 Ramila GRAY 78541 5:52am Monocytes # September 0.3 K/mm3 0.1-1.[address] 36 E (Auto) 2018 [place] [address] 5:52am Eosinophils # September 0.2 K/mm3 0.0-0.4 [facility], [address] [place] [address] 36 E (Auto) 2018 Ramila GRAY 84824 5:52am Basophils # September 0.0 K/mm3 0-0.2 [facility], [address] [place] [address] 36 E (Auto) 2018 Ramila GRAY 16275 5:52am Differential September 100 [facility], [address] [place] [address] 36 E Total Cells 2018 Joanna GRAY 44247 Counted 8:00am Neutrophils % September 87 % 42-76 [facility], [address] [place] [address] 36 E (Manual) 2018 Ramila GRAY 44942 8:00am Lymphocytes % September 4 % 10-50 [facility], [address] [place] [address] E (Manual) 2018 Ramila GRAY 38160 8:00am Monocytes % September 6 % 2-9 [facility], [address] [place] [address] 36 E (Manual) 2018 Ramila Cota31 8:00am Eosinophils % September 3 % 0-3 [facility], [address] [place] [address] 36 E (Manual) 2018 Ramila Cota31 8:00am Platelet November Normal [facility], [address] [place] [address] 36 E Estimate 2018 Ramila Cota31 8:00am Red Blood November Normal [facility], [address] [place] [address] 36 E Cell 2018 Ramila GRAY 50285 Morphology 8:00am Urine Color November Yellow Yellow [facility], [address] [place] [address] 36 E 2018 Ramila Cota31 10:10am Urine November Clear Clear [facility], [address] [place] [address] 36 E Appearance 2018 Leilani Cano 10:10am Urine pH September 5.5 5.0-8.5 [facility], [address] [place] [address] 36 E 2018 Ramila GRAY 40800 10:10am Urine November 1.020 1.005-1.030 [facility], [address] [place] [address] 36 E Specific 2018 Ramila GRAY 27911 Ponce 10:10am Urine Protein September Negative Negative [facility], [address] [place] [address] 36 E 2018 Ramila Cota31 10:10am Urine Glucose November Negative Negative [facility], [address] [place] [address] 36 E (UA) 2018 Ramila GRAY 99263 10:10am Urine Ketones November Negative Negative [facility], [address] [place] [address] 36 E 2018 Ramila [place] [address] 10:10am Urine Blood November Negative Negative [facility], [address] [place] [address] 36 E 2018 Ramila [place] [address] 10:10am Urine Nitrate November Negative Negative [facility], [address] [place] [address] 36 E 2018 Ramila [place] 05471 10:10am Urine November Negative Negative [facility], [address] [place] [address] E Bilirubin 2018 Ramila GRAY 40049 10:10am Urine November 0.2 EU/dl [facility], [address] [place] [address] E Urobilinogen 2018 Singh GRAY 57199 10:10am Urine November Negative Negative [facility], [address] [place] [address] E Leukocyte 2018 Ramila GRAY 46908 Esterase 10:10am Urine November Occasional [facility], [address] [place] [address] 36 E Squamous 2018 #/hpf Ramila [place] [address] Epithelial 10:10am Cells Urine November Trace /lpf NONE [facility], [address] [place] [address] E Bacteria 2018 Ramlia GRAY 25944 10:10am Urine Hyaline September 10-20 #/lpf [facility], [address] [place] [address] 36 E Casts 2018 Ramila GRAY 93273 10:10am Troponin I September < 0.02 0.00-0.06 *ALERT* High [facility], [address] [place] [address] 36 E 2018 ng/ml levels of Ramila GRAY 04159 8:00am Biotin can falsely depress Troponin results.Many dietary supplements promoted for hair,skin, and nail benefits contain biotin levels up to 650 times the recommended daily intake of biotin. In additon to dietary supplements, Biotin is occasionally prescribed for medical conditions. Sodium Level September 134 mmol/L 136-145 [facility], [address] [place] [address] 36 E 2018 Ramila GRAY 76458 5:52am Potassium September 4.2 mmoL/L 3.5-5.1 [facility], [address] [place] [address] E Level 2018 Ramila GRAY 15577 5:52am Chloride September 105 mmol/L 98-107 [facility], [address] [place] [address] 36 E Level 2018 Ramila GRAY 56686 5:52am Carbon September 21 mmol/L 21.0-32.0 [facility], [address] [place] [address] 36 E Dioxide Level 2018 Gualberto GRAY 90167 5:52am Anion Gap September 12.2 mEq/L 5-15 [facility], [address] [place] [address] 36 E 2018 Ramila GRAY 74402 5:52am Blood Urea September 20 mg/dL -18 Delta: 31 on [facility], [address] [place] [address] 36 E Nitrogen 201810/05/19 Gualberto GRAY 40464 5:52am Creatinine September 1.26 mg/dL 0.70-1.30 Delta: 2.41 [facility], [address] [place] [address] 36 E 2018 on Ramila GRAY 96025 5:52am 10/05/19 Estimated November 101 mL/min 0-300 [facility], [address] [place] [address] 36 E Creatinine 2018 Leilani GRAY 89594 Clearance 5:52am Estimated GFR September 73 ML/MIN >59 Delta: 35 on [facility], [address] [place] [address] 36 E ( 201810/05/19 Gualberto GRAY 00754 Indian) 5:52am Estimat September 60 ml/min >59 [facility], [address] [place] [address] 36 E Glomerular 2018 Cynsuzyan kalli GRAY 90081 Filtration 5:52am Rate Glucose Level September 125 mg/dL 74-106 [facility], [address] [place] [address] 36 E 2018 Ramila GRAY 63945 5:52am Lactate September 2.5 0.4-2.0 An elevated [place] [address] E 2018 Lactic Acid Joanna nas [place] [address] 3:40pm is suggestive of sepsis and should be repeated within 6 hours of initial testing. Calcium Level September 7.6 mg/dL 8.5-10.1 Delta: 9.6 on [facility], [address] [place] [address] 36 E 201810/05/19 Cynevelyn GRAY 97622 5:52am Phosphorus November 2.1 mg/dL 2.4-4.9 [facility], [address] [place] [address] 36 E Level 2018 [place] [address] 5:52am Magnesium November 1.5 mg/dL 1.4-2.2 [facility], [address] [place] [address] 36 E Level 2018 [place] [address] 5:52am Total November 0.2 mg/dL 0.2-1.0 [facility], [address] [place] [address] 36 E Bilirubin 2018 [place] [address] 5:52am Aspartate September 13 U/L 15-37 Delta: 25 on [facility], [address] [place] [address] 36 E Amino Transf 201810/05/19 Cy nehemiah [place] [address] (AST/SGOT) 5:52am Alanine September 14 U/L 12-78 Delta: 22 on [facility], [address] [place] [address] 36 E Aminotransfer 201810/05/19 C lupe [place] [address] ase 5:52am (ALT/SGPT) Total Protein September 5.6 gm/dL 6.4-8.2 Delta: 7.9 on [facility], [address] [place] [address] 36 E 201810/05/19 Cynevelyn GRAY 60499 5:52am Albumin September 2.5 gm/dL 3.4-5.0 Delta: 3.6 on [facility], [address] [place] [address] 36 E 201810/05/19 Cynevelyn bassam [place] [address] 5:52am Globulin September 3.1 gm/dl 1.3-3.2 [facility], [address] [place] [address] 36 E 2018 [place] [address] 5:52am Albumin/Globu November 0.8 1.1-1.8 [facility], [address] [place] [address] 36 E amish Ratio 2018 [place] [address] 5:52am Alkaline November 49 U/L 46-116 [facility], [address] [place] [address] 36 E Phosphatase 2018 [place] [address] 5:52am Stool November Not NotDetected [facility], [address] E Aeromonas 2018 [place] [address] (PCR) 7:55am Stool November Not NotDetected [facility], [address] E Campylobacter 2018 [place] [address] PCR 7:55am Stool C. November Not NotDetected [facility], [address] [place] [facility] 36 E difficile 2018 [place] [address] Toxin (PCR) 7:55am Stool November Not NotDetected [facility], [address] Plesiomonas 2018 [place] [address] shigelloides 7:55am PCR Stool November Not NotDetected [facility], [address] [place] [facility] 36 E Salmonella 2018 [place] [address] PCR 7:55am Stool November Not NotDetected [facility], [facility] [place] [facility] [address] Yersinia 2018 [place] [address] enterocolitic 7:55am a (PCR) Stool Vibrio November Not NotDetected [facility], [address] E (PCR) 2018 [place] [address] 7:55am Stool Vibrio November Not NotDetected [facility], [address] E cholerae 2018 [place] [address] (PCR) 7:55am Stool November Not NotDetected [facility], [address] Enteroaggrega 2018 [place] [address] tive E. coli 7:55am PCR Stool November Not NotDetected [facility], [address] Enteropathoge 2018 [place] [address] tobias E. coli 7:55am (PCR Stool November Not NotDetected [facility], [facility] [place] [facility] E Enterotoxigen 2018 [place] [address] ic Ecoli PCR 7:55am Stool E. coli November Not NotDetected [facility], [address] Shiga Toxins 2018 [place] [address] (PCR) 7:55am Stool E coli November Not NotDetected [facility], [address] E O157 PCR 2018 [place] [address] 7:55am Stool November Not NotDetected [facility], [address] [place] [facility] 36 E Shigella/EIEC 2018 [place] [address] (PCR) 7:55am Stool November Not NotDetected [facility], [address] [place] [facility] 36 E Cryptosporidi 2018 [place] [address] um PCR 7:55am Stool November Not NotDetected [facility], [address] [place] [facility] 36 E Cyclospora 2018 [place] [address] cayetanensis 7:55am (PCR) Stool November Not NotDetected [facility], [address] [place] [address] 36 E Entamoeba 2018 [place] [address] histolytica 7:55am (PCR) Stool Giardia November Not NotDetected [facility], [address] [place] [facility] 36 E Lamblia PCR 2018 [place] [address] 7:55am Stool November Not NotDetected [facility], [address] [place] [facility] 36 E Adenovirus F 2018 [place] [address] 40/41 (PCR) 7:55am Stool November Not NotDetected [facility], [facility] [place] [facility] E Astrovirus 2018 [place] [address] (PCR) 7:55am Stool November Detected NotDetected [facility], [facility] 36 E Norovirus 2018 [place] [address] GI/GII PCR 7:55am RESULT Result s called to: ESTEFANÍA PLAZA on 10/05/19 at 0959By Kamini Mirza MLS Stool November Not NotDetected [facility], [address] [place] [facility] 36 E Rotavirus 2018 [place] [address] (PCR) 7:55am Stool November Not NotDetected [facility], [address] [place] [address] 36 E Sapovirus 2018 [place] [address] (PCR) 7:55am Diagnostic Imaging Reports Report Dictated Date/Time Dictated By Status Radiology Report October 05, 2019 Justino Toledo MD completed 9:52am [facility] [address] [place] [facility] [address] [place] [address] [address] Scan Report Sig mohsen Patient: Harjit Camarillo JR MR# : [id number] : 1970 Acct:[id number] Age/Sex: 49 / M ADM Date: 9 Loc: 2ND 203-[address]: Mani Lund MD Ordering Physician: Umer Brizuela MD Date of Service: 10/05/19 Procedure(s): CT abdomen pelvis wo con Accession Number(s): [id number] cc: Justino Toledo MD; Mani Lund MD~ PROCEDURE: CT ABDOMEN PELVIS WO CON CLINICAL INDICATION: abd pain, NVD Abdominal pain with nausea vomiting and diarrhea COMPARISON: ABDPELW/O CT ABD PELVIS W/O CONTRAST from 10/22/2015 TECHNIQUE: Axial images obtained with sagittal and coronal reformats. All CT scans at the facility use one or more dose reduction, viz: automated exposure cont rol, ma/kV adjustment per patient size (including targeted exams where dose is matched to indication, i.e. head), or iterative re construction technique. FINDINGS: LOWER THORAX: Chronic scarring is prese nt in the left lung base medially. Mild thickening of the peric ardium consistent with small pericardial effusion ABDOMEN & PELVIS: Fatty liver. There i s a gallstone present. The spleen, adrenal glands, pancreas, and k idneys show no acute finding. The appendix is slightly prominent but does not appear distended and is not significantly changed. The prom inence of the appendix may only represent a normal variant. Pleas e correlate with clinical parameters. Multiple fluid-filled loop s of mildly distended small bowel are noted throughout the abdomen including the terminal ileum and may represent ileus/enteritis. The re is also some mild thickening of the colon. Enterocolitis is considered. Multiple unopacified bowel loops in the abdomen or pelvis which could obscure or mimic pathology. If symptoms persis t, consider repeat exam with IV and oral contrast. IMPRESSION: 1. Fluid-filled loops of small bowel al courtney with mildly thickened colon consistent with enterocolitis. 2. Cholelithiasis 3. Mildly prominent appendix. Repeat e xam with IV and oral contrast may be of further value if clinical fin dings are indeterminate Dictated by: Justino Toledo MD 10/05/2019 12:25 Electronically signed by Justino Toledo in OV 10/05/2019 12:25 Radiology Report October 05, 2019 Justino Toledo MD completed 8:36am [facility] [address] [place] [facility] [address] [place] [address] XRay R eport Sig mohsen Patient: Harjit Camarillo JR MR# : [id number] : 1970 Acct:[id number] Age/Sex: 49 / M ADM Date: 9 Loc: Attending Dr: Mani Lund MD Ordering Physician: Umer Brizuela MD Date of Service: 10/05/19 Procedure(s): XR chest portable Accession Number(s): [id number] cc: Justino Toledo MD; Mani Lund MD~ PROCEDURE: XR CHEST PORTABLE CLINICAL HISTORY: weakness COMPARISON: CXR CHEST(2 VIEWS-NOT PORT ABLE) from 12/17/2012 CXR2V XR chest 2V from 07/21/[address] chest w con from 02/27/2019 FINDINGS: The cardiomediastinal silhouette and pu lmonary vascularity are within normal limits. The lungs are clear without infiltrates , suspicious nodules, or pleural effusions. No acute bony abnormalities. IMPRESSION: No acute findings. Dictated by: Justino Toledo MD 10/05/2019 12:44 Electronically signed by Justino Toledo in [place] 10/05/2019 12:44 Health Concerns Concerns nausea/vomiting/diarrhea Advance Directives Advance Directive Response Recorded Date/Time Does the patient have an No September 14 019 10:25am advanced directive on file? Living Will No September 14, 2019 1 0:25am Does the patient have an No July 17, 2019 12:07pm advanced directive on file? Living Will No July 17, 2019 12:07pm Chief Complaint and Reason for Visit Chief Complaint headache 2 month follow up Infectious Diarreah, Hyponut rimia, Medabolic acido Reason for Visit KEKE (acute kidney injury) Enteritis due to Norovirus Hyponatremia Infection due to Norovirus s pecies Infectious diarrhea Intractable vomiting Lung cancer metastatic to br ain Metabolic acidosis Severe sepsis with acute org an dysfunction Encounters Encounter Location(s) Arrival/Admit Date Discharge/Depart Date Provider(s) Departed [facility] Physician July 17, July 17, 2019 Sol[facility] [place] Physician[facility]-Primary 2019 9:48am 10:55am MD Ashely hoang Office Care-Ashely Visit Departed [facility] Physician September 14, 2019 September 14, 2019 Gladys [place] Physician/[facility]-Primary 9:50am 10:37am MD Ashely hoang Office Care-Ashely Visit Discharged [facility] Physician October 05, October 06, 2019 [facility] [place] Inpatient Group-Second 2018 12:17pm 12:32pm MD Ashely Floor Registered [facility] Physician October 06, Mani [place] Inpatient Group- 2018 3:21pm MD Ashely Recent Diagnosis Onset Date KEKE (acute kidney injury) Enteritis due to Norovirus Hyponatremia Infection due to Norovirus species Infectious diarrhea Intractable vomiting Lung cancer metastatic to brain Metabolic acidosis Severe sepsis with acute organ dysfunction Assessments See care plan goals Functional Status Observation Response Date Recorded Oral Care Ability Independent October 05, 2019 11:54am Bathing Ability Independent October 05, 2019 11:54am Eating (Feeding) Ability Independent October 05, 2019 11:54am Toileting Ability Independent October 05, 2019 11:54am Ambulation Ability Independent October 06, 2019 11:05am Functional status ambulatory September 14, 2019 1 0:25am Functional status ambulatory July 17, 2019 12:07pm Goals Acute Goals Nursing Diagnosis: Knowledge Deficit D isease/Condition Goal(s): Education of di sease process Instruction(s): Follow provider p tamiko/instructions (See attached discharge education) Follow/up with primary care provider as instructed in discharge packet Ambulatory Goals Patient verbalizes understanding of dise ase process. Patient to follow plan of care. Education provided. Immunizations Immunization Event Date Not Given Dose Library Media Assistant Lot Vac cine Reason Number Number Informatio n Statement (VIS) Deta il Fluvirin November 23, 2016 Fluvirin July 23, 2017 Fluzone Quad August 14, [id number] 6mo+ 2017 Fluzone Quad September [id number] 6mo+ 2018 Fluzone Quad August 14, 6-35 Months 2018 Quadrivalent July Mental Status Observation Response Date Recorded Comprehension Ability No Impairment October 05 9 6:51pm Able to Read Yes October 05, 2019 11:54am Able to Write Yes October 05, 2019 11:54am Medical Equipment No Medical Equipment Information available Insurance Providers Guarantor Harjit Duarte Rabia SLATER Address [address] [facility] [address] Contact Info. Home Phone: Payer Policy Id Coverage Id Subscriber's Subscriber Effective Expi ration Name Id Date Date Hilda [id number] Harjit Duarte [id number] [facility] Rabia [facility] Passport [id number] Harjit Duarte [id number] November Health Plan [facility] 2016 Self Pay Self N/A Plan of Treatment Follow up as ordered by primary care provider will refill meds at this time Future Tests Future scheduled test information is unavailable Pending Tests Pending diagnostic test information is unavailable Future Visits Future appointment information is unavailable Referrals to Other Providers Reason for Referral Start Provider Provider Contact Provider Address Referral Date Information Admission to [facility] October [address] [place] [address] Future Procedures Future procedure information is unavailable Future Medications Future medication information is unavailable Patient Instructions Esophageal Stricture Esophageal Variceal Injection Tension Headache Hiatal Hernia Esophageal Cancer Endoscopic Band Ligation Achalasia Esophageal Varices Esophagectomy Steakhouse Syndrome Esophageal Dilation Esophageal Dysphagia DI for Brown's Esophagus Norovirus Infection DI for Norovirus Infection Social History Assigned Sex Male Vital Signs Vital Reading Result Reference Range Collection Date/ Time Height 175.26 cm July 17 9:51am Weight 105.68 kg July 17 9:51am Body Temperature 97.2 [degF] 97.6-99.6 July 17, 2019 9:51am Heart Rate 89 /min 60-90 July 17 9:51am Oxygen saturation by 98 % 95-100 July 172018 Pulse oximetry 9:51am BP Systolic 128 mm[Hg] 110-140 July 17 019 9:51am BP Diastolic 82 mm[Hg] 60-90 July 17 019 9:51am BMI (Body Mass Index) 34.4 kg/m2 July 17, 2019 9:51am Height 175.26 cm September 14 10:02am Weight 103.41 kg September 14 10:02am Body Temperature 97.9 [degF] 97.6-99.6 September 14 10:02am Heart Rate 115 /min 60-September 14 10:02am Respiratory rate 16 /min -September 14, 2 019 10:02am Oxygen saturation by 98 % 95-100 September Pulse oximetry 10:02am BP Systolic 110 mm[Hg] 110-140 September 14 10:02am BP Diastolic 66 mm[Hg] 60-90 September 14 10:02am BMI (Body Mass Index) 33.6 kg/m2 September 142018 10:02am Height 175.26 cm October 06, 2 019 5:00am Weight 102.51 kg October 06, 2 019 5:00am Body Temperature 98.7 [degF] 97.6-99.6 October 06, 2019 7:58am Heart Rate 112 /min -October 06, 2 019 7:58am Respiratory rate 18 /min -October 06, 2019 7:58am Oxygen saturation by 98 % 95-100 October 062018 Pulse oximetry 7:58am BP Systolic 113 mm[Hg] 110-140 October 06, 2 019 7:58am BP Diastolic 77 mm[Hg] 60-90 October 06, 2 019 7:58am BMI (Body Mass Index) 33.3 kg/m2 September 122018 5:00am
== END 2019-10-06 12:32 | disposition home or self-care (01) ==
LOC: ER 07:48 → 2ND 11:50 → INTOOBSV 12:17
PROVIDERS: ADMIT Emergency Medicine; ATTEND Emergency Medicine
CPT/HCPCS: 36415; 71010; 71045; 74176; 80053; 81001; 83605; 83735; 84100; 84484; 85007; 85025; 87040; 87507; 90686; 93005; 96365; 96366; 96367; 96375; 96376; 99285; G0378; J1335; J2405

== ENCOUNTER → 2019-12-11 15:01 | Outpatient (CLI) | payer OTHER, SELFPAY ==
[2019-12-11 16:50] LABS: Amphetamine/Metha Screen,Urine Negative ng/mL (<1000); Barbiturates Screen,Urine Negative ng/mL (<200); Benzodiazepines Screen,Urine Positive ng/mL (<200); Cannabinoid Screen,Urine Positive ng/mL (<50); Cocaine Screen,Urine Negative ng/mL (<300); Methadone Screen,Urine Negative ng/mL (<300); Opiate Screen,Urine Negative ng/mL (<300); Phencyclidine Screen,Urine Negative ng/mL (<25)
== END ==
PROVIDERS: Visit Provider Emergency Medicine
DX: Z79.899 Other long term (current) drug therapy (principal)
CPT/HCPCS: 80305

== ENCOUNTER → 2020-03-09 07:52 | Outpatient (CLI) | payer OTHER, SELFPAY ==
--- NOTE | 2020-03-09 07:52 | US_ITS ---
PROCEDURE: US GALLBLADDER CLINICAL INDICATION: PAIN Right upper quadrant pain with vomiting and diarrhea COMPARISON: CT ABDOMEN PELVIS W CON from 01/31/2020 FINDINGS: Pancreas: Pancreas is poorly demonstrated and may be better evaluated with CT if clinically warranted Liver: Diffuse increased echogenicity of the liver with poor through transmission of sound consistent with fatty liver. There is appropriate direction of blood flow within a non dilated portal vein. Right kidney: Unremarkable appearing. No hydronephrosis. Gallbladder: Small gallstone is present. No gallbladder wall, or biliary dilatation is evident. Common bile duct is 2 mm. IMPRESSION: Cholelithiasis with fatty liver Dictated by: Justino Toledo MD 03/09/2020 13:58 Electronically signed by Justino Toledo MD in [facility] 03/09/2020 13:58
== END ==
PROVIDERS: PCP Emergency Medicine; Visit Provider Emergency Medicine
DX: R10.9 Unspecified abdominal pain (principal)
CPT/HCPCS: 76705

== ENCOUNTER 2020-12-28 14:34 | Emergency (ER) | payer OTHER, SELFPAY ==
[2020-12-28] VITALS (7 sets, daily range): BP systolic 92–116; BP diastolic 53–77; PULSE 104–133; RESP 18–20; TEMP 36.8; O2SAT 95–100; BMI 35.4
--- NOTE | 2020-12-28 14:42 | ECG_ITS ---
APPROVED REPORT Exam: Resting ECG HR:122 bpm ECG Measurements Heart Rate 122 AXES MT 156 P 62 QRSd 68 QRS 34 QT 292 T 51 QTc 416 Conclusion Sinus tachycardia Otherwise normal ECG Electronically signed by : Clayton Boggs, 12/29/2020 17:27:49
--- NOTE | 2020-12-28 14:45 | HMH.EDGENADL ---
ED Disposition Clinical Impression: Dehydration, Hyponatremia Nausea and vomiting Qualifiers: Vomiting type: unspecified Vomiting Intractability: intractable Qualified Code(s): R11.2 - Nausea with vomiting, unspecified Metastatic lung cancer (metastasis from lung to other site) Qualifiers: Laterality: unspecified laterality Qualified Code(s): C34.90 - Malignant neoplasm of unspecified part of unspecified bronchus or lung GERD (gastroesophageal reflux disease) Qualifiers: Esophagitis presence: esophagitis presence not specified Qualified Code(s): K21.9 - Gastro-esophageal reflux disease without esophagitis Disposition: Home, Self-Care Condition on Discharge: Fair Instructions: DI for Gastroesophageal Reflux Disease (GERD), DI for Vomiting -- Adult Additional Instructions: You may take prochlorperazine that you already have or try Reglan for your symptoms. Continue your other medications. Follow-up with your physicians at [facility] as scheduled. Have labs rechecked at your next appointment. Prescriptions: Metoclopramide HCl [Reglan 5mg Tablet] 5 mg PO TIDP PRN #30 tab PRN Reason: Nausea Transmission Status: Pending to [facility] Referrals: aMni Lund MD [Primary Care Provider] - - Critical Care Critical Care Time: No Attestation: On 12/28/20, the high probability of a clinically significant, sudden or life threatening deterioration of the following system(s) required my full and direct attention, intervention and personal management. The time I documented below is in addition to time spent performing reported procedures but includes the following listed in this critical care notation. Medical Decision Making - Medical Records Medical records reviewed: Yes: I reviewed the patient's medical records. MR Comment: Reviewed latest oncology clinic note from via portal. Patient has metastatic adenocarcinoma. - Shawn Inquiry Pt receiving controlled substance: No Vital Signs: 12/28/20 14:35 12/28/20 15:09 12/28/20 15:30 Temperature 98.3 F Temperature Source Oral Pulse Rate [Left Radial] 133 H 123 H 104 H Respiratory Rate 19 20 Blood Pressure [Right Arm] 106/72 L 104/53 L 116/70 Blood Pressure Mean [Right Arm] 83 70 85 Blood Pressure Source [Right Arm] Automatic Cuff Automatic Cuff Automatic Cuff Blood Pressure Position [Right Arm] Sitting Sitting Sitting 02 Sat by Pulse Oximetry 98 100 96 Oxygen Delivery Method Room Air Room Air Room Air 02/17/21 16:00 12/28/20 16:30 Temperature Temperature Source Pulse Rate [Left Radial] 108 H 115 H Respiratory Rate 20 Blood Pressure [Right Arm] 92/59 L 112/77 Blood Pressure Mean [Right Arm] 70 88 Blood Pressure Source [Right Arm] Automatic Cuff Blood Pressure Position [Right Arm] Sitting 02 Sat by Pulse Oximetry 95 100 Oxygen Delivery Method Room Air Room Air - Lab Data Lab Results 12/28/20 14:51: WBC 8.7, RBC 4.78, Hgb 13.4 L, Hct 40.5 L, MCV 84.7, MCH 28.1, MCHC 33.1, RDW 15.5, Plt Count 216, MPV 6.9 L, Neut % (Auto) 83.2 H, Lymph % (Auto) 11.9, Cecil % (Auto) 3.6, Eos % (Auto) 1.0, Baso % (Auto) 0.3, Neut # (Auto) 7.2, Lymph # (Auto) 1.0, Cecil # (Auto) 0.3, Eos # (Auto) 0.1, Baso # (Auto) 0.0 12/28/20 14:51: Sodium 130 L, Potassium 4.6, Chloride 94 L, Carbon Dioxide 31 H, Anion Gap 9.6, BUN 28 H, Creatinine 1.50 H, Estimated Creat Clear 89, Estimated GFR 49 L, Est GFR ( Amer) 59, Glucose 114 H, Calcium 9.7, Total Bilirubin 0.6, AST 26, ALT 31, Alkaline Phosphatase 94, Troponin I < 0.01, Total Protein 7.7, Albumin 4.2, Globulin 3.5 H, Albumin/Globulin Ratio 1.2 12/28/20 14:51: Lipase 208 Result diagrams: 12/28/20 14:51 12/28/20 14:51 Orders (Tests/Meds): ED MEDICATIONS Generic Name Dose Route Start Last Admin Trade Name Freq PRN Reason Stop Dose Admin Sodium Chloride 8 ml 12/28/20 15:14 12/28/20 15:21 Sodium Chloride 0.9% 10ml Vial IV 01/27/21 15:13 8 ml NEEDED PRN Administr
[2020-12-28 15:00] LABS: Basophils % 0.3 % (0.1-2.0); Eosinophils # 0.1 K/mm3 (0.0-0.4); Hematocrit 40.5 % (42.0-52.0); Hemoglobin 13.4 g/dL (14.1-18.0); Lymphocytes % 11.9 % (10-50); Mean Corpuscular HGB Conc 33.1 g/dL (31.8-35.4); Mean Corpuscular Hemoglobin 28.1 pg (27.0-31.2); Mean Corpuscular Volume 84.7 fl (80-94); Mean Platelet Volume 6.9 fl (7.4-10.4); Monocytes # 0.3 K/mm3 (0.1-1.0); Monocytes % 3.6 % (1.7-9.3); Neutrophils # 7.2 K/mm3 (1.8-7.8); Neutrophils % 83.2 % (37.0-80.0); Platelet Count 216 K/mm3 (142-424); Red Blood Count 4.78 M/mm3 (4.60-6.20); Red Cell Distribution Width 15.5 % (11.5-17.5); White Blood Count 8.7 K/mm3 (4.8-10.8)
[2020-12-28 15:03] LABS: Chloride 94 mmol/L (98-107)
[2020-12-28 15:04] LABS: Potassium 4.6 mmoL/L (3.5-5.1); Sodium 130 mmol/L (136-145)
[2020-12-28 15:06] LABS: Alanine Aminotransferase 31 U/L (12-78); Alkaline Phosphatase 94 U/L (38-126); Aspartate Amino Transferase 26 U/L (17-59); Bilirubin,Total 0.6 mg/dl (0.2-1.3); Blood Urea Nitrogen 28 mg/dl (9-20); Creatinine Clearance Estimated 89 mL/min (50-200); Estimated Glomerular Filt Rate 49 ml/min (>60); GFR (African American) 59 ML/MIN (>60)
[2020-12-28 15:07] LABS: Albumin Level 4.2 g/dl (3.5-5.0); Albumin/Globulin Ratio 1.2 (1.1-1.8); Anion Gap 9.6 mEq/L (5-15); Calcium 9.7 mg/dl (8.4-10.2); Carbon Dioxide 31 mmol/L (22.0-30.0); Globulin 3.5 g/dL (1.3-3.2); Glucose 114 mg/dl (74-100); Total Protein,Serum 7.7 g/dl (6.3-8.2)
[2020-12-28 15:25] LABS: Troponin I < 0.01 ng/ml (0.00-0.034)
[2020-12-28 15:50] LABS: Lipase 208 U/L (23-300)
--- NOTE | 2020-12-28 16:56 | PC.NURSE ---
MD at bedside discussing plan of care. Patient reports he is feeling much better.
== END 2020-12-28 17:32 | disposition home or self-care (01) ==
PROVIDERS: Emergency Provider Emergency Medicine; PCP Emergency Medicine
DX: E86.0 Dehydration (principal); C34.90 Malignant neoplasm of unspecified part of unspecified bronchus or lung; E87.1 Hypo-osmolality and hyponatremia; K21.9 Gastro-esophageal reflux disease without esophagitis; F41.9 Anxiety disorder, unspecified; I10 Essential (primary) hypertension; Z87.891 Personal history of nicotine dependence; Z79.899 Other long term (current) drug therapy; Z88.0 Allergy status to penicillin; Z88.5 Allergy status to narcotic agent
CPT/HCPCS: 80053; 83690; 84484; 85025; 93005; 96365; 96366; 96375; 99283; J2405

== ENCOUNTER → 2021-01-16 17:08 | Outpatient (CLI) | payer OTHER, SELFPAY ==
[2021-01-16 18:12] LABS: Amphetamine/Metha Screen,Urine Negative ng/ml (<1000)
[2021-01-16 18:13] LABS: Barbiturates Screen,Urine Negative ng/ml (<200); Benzodiazepines Screen,Urine Negative ng/ml (<200)
[2021-01-16 18:14] LABS: Cocaine Screen,Urine Negative ng/ml (<300)
[2021-01-16 18:15] LABS: Methadone Screen,Urine Negative ng/ml (<300)
[2021-01-16 18:17] LABS: Opiate Screen,Urine Positive ng/ml (<300)
[2021-01-16 18:18] LABS: Phencyclidine Screen,Urine Negative ng/ml (<25)
[2021-01-16 21:40] LABS: Cannabinoid Screen,Urine Positive ng/ml (<50)
== END ==
PROVIDERS: Visit Provider Emergency Medicine
DX: C34.90 Malignant neoplasm of unspecified part of unspecified bronchus or lung (principal)
CPT/HCPCS: 80305

== ENCOUNTER → 2021-09-06 13:19 | Outpatient (CLI) | payer OTHER, SELFPAY ==
[2021-09-06 14:52] LABS: Amphetamine/Metha Screen,Urine Negative ng/ml (<1000)
[2021-09-06 14:53] LABS: Barbiturates Screen,Urine Negative ng/ml (<200)
[2021-09-06 14:55] LABS: Benzodiazepines Screen,Urine Negative ng/ml (<200); Cannabinoid Screen,Urine Negative ng/ml (<50)
[2021-09-06 14:56] LABS: Cocaine Screen,Urine Negative ng/ml (<300); Methadone Screen,Urine Negative ng/ml (<300)
[2021-09-06 14:57] LABS: Opiate Screen,Urine Positive ng/ml (<300)
[2021-09-06 14:58] LABS: Phencyclidine Screen,Urine Negative ng/ml (<25)
== END ==
PROVIDERS: Visit Provider Emergency Medicine
DX: Z79.899 Other long term (current) drug therapy (principal)
CPT/HCPCS: 80305

== ENCOUNTER → 2023-01-08 10:55 | Outpatient (CLI) | payer OTHER, SELFPAY ==
[2023-01-08 15:27] LABS: Amphetamine/Metha Screen,Urine Negative ng/ml (<1000)
[2023-01-08 15:28] LABS: Barbiturates Screen,Urine Negative ng/ml (<200); Benzodiazepines Screen,Urine Negative ng/ml (<200)
[2023-01-08 15:29] LABS: Cannabinoid Screen,Urine Positive ng/ml (<50); Cocaine Screen,Urine Negative ng/ml (<300)
[2023-01-08 15:30] LABS: Methadone Screen,Urine Negative ng/ml (<300)
[2023-01-08 15:31] LABS: Opiate Screen,Urine Negative ng/ml (<300); Phencyclidine Screen,Urine Negative ng/ml (<25)
== END ==
PROVIDERS: PCP Emergency Medicine; Visit Provider Emergency Medicine
DX: Z79.899 Other long term (current) drug therapy (principal)
CPT/HCPCS: 80305

== ENCOUNTER → 2023-03-05 10:33 | Outpatient (CLI) | payer OTHER, SELFPAY ==
[2023-03-05 16:48] LABS: Amphetamine/Metha Screen,Urine Negative ng/ml (<1000)
[2023-03-05 16:49] LABS: Barbiturates Screen,Urine Negative ng/ml (<200)
[2023-03-05 16:50] LABS: Benzodiazepines Screen,Urine Negative ng/ml (<200); Cannabinoid Screen,Urine Positive ng/ml (<50)
[2023-03-05 16:51] LABS: Cocaine Screen,Urine Negative ng/ml (<300); Methadone Screen,Urine Negative ng/ml (<300)
[2023-03-05 16:52] LABS: Opiate Screen,Urine Positive ng/ml (<300)
[2023-03-05 16:53] LABS: Phencyclidine Screen,Urine Negative ng/ml (<25)
== END ==
PROVIDERS: PCP Emergency Medicine; Visit Provider Emergency Medicine
DX: Z79.899 Other long term (current) drug therapy (principal)
CPT/HCPCS: 80305

== ENCOUNTER → 2023-03-20 09:34 | Outpatient (CLI) | payer OTHER, SELFPAY | PROVIDERS: PCP Nurse Practitioner Family; Visit Provider Nurse Practitioner Family | DX: L03.115 Cellulitis of right lower limb (principal); T14.8XXA Other injury of unspecified body region, initial encounter; B95.7 Other staphylococcus as the cause of diseases classified elsewhere | CPT/HCPCS: 87070; 87077; 87186; 87205 ==

== ENCOUNTER → 2023-04-30 14:49 | Outpatient (CLI) | payer OTHER, SELFPAY ==
[2023-04-30 13:35] LABS: Amphetamine/Metha Screen,Urine Negative ng/ml (<1000); Barbiturates Screen,Urine Negative ng/ml (<200)
[2023-04-30 13:36] LABS: Benzodiazepines Screen,Urine Negative ng/ml (<200); Cannabinoid Screen,Urine Positive ng/ml (<50)
[2023-04-30 13:37] LABS: Cocaine Screen,Urine Negative ng/ml (<300)
[2023-04-30 13:38] LABS: Methadone Screen,Urine Negative ng/ml (<300)
[2023-04-30 13:39] LABS: Opiate Screen,Urine Positive ng/ml (<300)
[2023-04-30 13:40] LABS: Phencyclidine Screen,Urine Negative ng/ml (<25)
== END ==
PROVIDERS: PCP Emergency Medicine; Visit Provider Emergency Medicine
DX: Z79.899 Other long term (current) drug therapy (principal)
CPT/HCPCS: 80305

== ENCOUNTER 2023-06-01 14:17 | Emergency (ER) | payer OTHER, SELFPAY ==
[2023-06-01 14:18] VITALS: BP 141/90; PULSE 107; RESP 16; TEMP 36.8; O2SAT 98; BMI 35.4
--- NOTE | 2023-06-01 14:37 | PC.NURSE ---
rounded on pt, stable, waiting on open bed in the ER, HS rounded
--- NOTE | 2023-06-01 15:04 | HMH.EDGENADL ---
Discharge Plan Disposition Patient Disposition: Home, Self-Care Condition: Good Prescriptions Prescriptions: No Action losartan-hydrochlorothiazide [Hyzaar] 100-25 mg tablet 1 tab PO DAILY Qty: 90 3RF diazepam 5 mg tablet 5 mg PO BID Qty: 60 1RF oxycodone 10 mg tablet 10 mg PO QID PRN (Reason: pain) Qty: 120 0RF albuterol sulfate 2.5 mg /3 mL (0.083 %) solution for nebulization 2.5 mg INHALATION Q4-6H Qty: 180 2RF omeprazole 40 mg capsule,delayed release(DR/EC) See Rx Instructions .ROUTE .COMPLEX Qty: 90 1RF Dose Instruction: TAKE 1 CAPSULE BY MOUTH ONCE DAILY FOR GERD Rx Instructions: TAKE 1 CAPSULE BY MOUTH ONCE DAILY FOR GERD folic acid 1 mg tablet See Rx Instructions .ROUTE .COMPLEX Qty: 90 0RF Dose Instruction: TAKE 1 TABLET BY MOUTH ONCE DAILY Rx Instructions: TAKE 1 TABLET BY MOUTH ONCE DAILY fexofenadine 180 mg tablet See Rx Instructions .ROUTE .COMPLEX Qty: 30 0RF Dose Instruction: TAKE 1 TABLET BY MOUTH ONCE DAILY Rx Instructions: TAKE 1 TABLET BY MOUTH ONCE DAILY albuterol sulfate [Ventolin HFA] 90 mcg/actuation HFA aerosol inhaler See Rx Instructions .ROUTE .COMPLEX Qty: 18 1RF Dose Instruction: INHALE 2 PUFFS EVERY 4-6 HOURS NEEDED FOR SHORTNESS OF BREATH OR WHEEZING Rx Instructions: INHALE 2 PUFFS EVERY 4-6 HOURS NEEDED FOR SHORTNESS OF BREATH OR WHEEZING Referrals Follow up/Referrals: Mani Lund MD [Primary Care Provider] - See instructions Activity Restrictions/Add. Instructions Additional Instructions/Restrictions: At this time is that you are safe to be discharged home. If new or worsening symptoms please do not hesitate to return to the emergency department. Clinical Impressions Clinical Impression: Forehead laceration Discharge ED Provider: Parth Andujar General Adult HPI General Stated complaint: AO hit head car door 06/01 Head lac Time Seen by Provider: 06/01/23 15:01 History of Present Illness HPI narrative: Patient is a 53-year-old male with no pertinent past medical history presents emergency department for evaluation of trauma. Patient hit his head against an open car door prior to arrival, no loss of consciousness. This resulted in a laceration over his right superior brow for which he presents for closure. Last Tdap 3 years ago. Related Data Previous Rx's Medication Instructions Recorded albuterol sulfate 2.5 mg/3 mL 2.5 mg (3 mL) inhalation Q4-6H 05/10/21 (0.083 %) solution for nebulization #180 mL losartan 100 1 tab PO DAILY #90 tabs 11/27/22 mg-hydrochlorothiazide 25 mg tablet (Hyzaar) omeprazole 40 mg capsule,delayed See Rx Instructions .Route 02/01/23 release .COMPLEX #90 caps folic acid 1 mg tablet See Rx Instructions .Route 03/25/23 .COMPLEX #90 tabs fexofenadine 180 mg tablet See Rx Instructions .Route 04/26/23 .COMPLEX #30 tabs diazepam 5 mg tablet 5 mg PO BID Anxiety #60 tabs 04/30/23 oxycodone 10 mg tablet 10 mg PO QID PRN pain #120 tabs 04/30/23 albuterol sulfate 90 mcg/actuation See Rx Instructions .Route 05/27/23 aerosol inhaler (Ventolin HFA) .COMPLEX #18 grams Allergies Allergy/AdvReac Type Severity Reaction Status Date / Time codeine [CODEINE] Allergy Unknown Verified 04/30/23 11:18 Penicillins [PENICILLINS] Allergy Unknown Verified 04/30/23 11:18 lisinopril AdvReac Mild Cough Verified 04/30/23 11:18 [facility] Disclaimer: The information contained in this section may have been updated after the patient was seen, as this information can be updated by other users. Medical History (Updated 06/01/23 @ 15:12 by Parth Andujar MD) Confusion Vertigo Weakness Surgical History (Updated 04/30/23 @ 11:20 by VIKTORIA Alicea) Hx of brain surgery Family History (Updated 04/30/23 @ 11:21 by VIKTORIA Alicea) Mother Diabetes Social History Smoking Status: Form
--- NOTE | 2023-06-01 15:21 | PC.NURSE ---
laceration cleaned, glued and steri strip in place, pt tolerated well.
[2023-06-01 15:22] VITALS: BP 141/90; PULSE 107; RESP 16; TEMP 36.8; O2SAT 98
== END 2023-06-01 15:34 | disposition home or self-care (01) ==
LOC: ER 15:27
PROVIDERS: Emergency Provider Emergency Medicine; PCP Emergency Medicine
DX: S01.81XA Laceration without foreign body of other part of head, initial encounter (principal); W22.8XXA Striking against or struck by other objects, initial encounter; Z87.891 Personal history of nicotine dependence
CPT/HCPCS: 12013; 99282

== ENCOUNTER → 2023-10-24 23:57 | Outpatient (CLI) | payer OTHER, SELFPAY ==
[2023-10-24 18:24] LABS: Benzodiazepines Screen,Urine Positive ng/ml (<200)
[2023-10-24 18:25] LABS: Amphetamine/Metha Screen,Urine Negative ng/ml (<1000); Barbiturates Screen,Urine Negative ng/ml (<200)
[2023-10-24 18:26] LABS: Methadone Screen,Urine Negative ng/ml (<300)
[2023-10-24 18:27] LABS: Cannabinoid Screen,Urine Negative ng/ml (<50); Cocaine Screen,Urine Negative ng/ml (<300)
[2023-10-24 18:28] LABS: Phencyclidine Screen,Urine Negative ng/ml (<25)
[2023-10-24 18:29] LABS: Opiate Screen,Urine Positive ng/ml (<300)
== END ==
PROVIDERS: PCP Family Medicine; Visit Provider Family Medicine
DX: Z79.899 Other long term (current) drug therapy (principal)
CPT/HCPCS: 80305

== ENCOUNTER 2023-12-02 12:07 | Outpatient (CLI) | payer OTHER, SELFPAY ==
[2023-12-02 17:35] LABS: Amphetamine/Metha Screen,Urine Negative ng/ml (<1000); Barbiturates Screen,Urine Negative ng/ml (<200); Benzodiazepines Screen,Urine Positive ng/ml (<200); Cannabinoid Screen,Urine Positive ng/ml (<50); Cocaine Screen,Urine Negative ng/ml (<300); Methadone Screen,Urine Negative ng/ml (<300); Opiate Screen,Urine Positive ng/ml (<300); Phencyclidine Screen,Urine Negative ng/ml (<25)
== END 2023-12-02 23:59 ==
LOC: LAB.DROPOF 12:07
PROVIDERS: PCP Physician Assistant; Visit Provider Physician Assistant
DX: G89.29 Other chronic pain (principal); Z79.899 Other long term (current) drug therapy
CPT/HCPCS: 80307

== ENCOUNTER 2024-01-25 21:24 | Emergency (ER) | payer OTHER, SELFPAY ==
[2024-01-25 21:34] VITALS: BP 156/97; PULSE 111; RESP 17; TEMP 36.7; O2SAT 98; BMI 36.9
--- NOTE | 2024-01-25 21:43 | XR_ITS ---
PROCEDURE INFORMATION: Exam: XR Right Hand Exam date and time: 01/25/2024 9:44 PM Age: 54 years old Clinical indication: Condition or disease; Other: Swelling/redness; Patient HX: Leonel; Additional info: Swollen, tight feeling TECHNIQUE: Imaging protocol: Radiologic exam of the right hand. Views: 3 or more views. Total images: 3 COMPARISON: No relevant prior studies available. FINDINGS: Bones/joints: No acute fracture or joint dislocation. No concerning bone lesions or calcifications. Joint spaces are well maintained. Soft tissues: Unremarkable soft tissues. IMPRESSION: Negative right hand.
[2024-01-25] MEDS: cephALEXin 500MG CAPSULE 1000 MG PO (23:27)
--- NOTE | 2024-01-25 23:27 | ED_ITS ---
Discharge Plan Disposition Patient Disposition: Home, Self-Care Condition: Good Prescriptions Prescriptions: New cephalexin 500 mg capsule 1,000 mg PO BID 5 Days Qty: 20 0RF permethrin 5 % cream 1 applic topical ONCE Qty: 60 0RF Rx Instructions: apply second treatment 14 days after first treatment if bites remain No Action lorazepam [Ativan] 1 mg tablet 1 mg PO TID PRN (Reason: anxiety) 30 Days Qty: 90 0RF albuterol sulfate 2.5 mg /3 mL (0.083 %) solution for nebulization 2.5 mg INHALATION Q4-6H Qty: 180 2RF albuterol sulfate [Ventolin HFA] 90 mcg/actuation HFA aerosol inhaler See Rx Instructions .ROUTE .COMPLEX Qty: 18 3RF Dose Instruction: INHALE 2 PUFFS EVERY 4-6 HOURS NEEDED FOR SHORTNESS OF BREATH OR WHEEZING Rx Instructions: INHALE 2 PUFFS EVERY 4-6 HOURS NEEDED FOR SHORTNESS OF BREATH OR WHEEZING fexofenadine [Allergy Relief (fexofenadine)] 180 mg tablet See Rx Instructions .ROUTE .COMPLEX Qty: 90 3RF Dose Instruction: TAKE 1 TABLET BY MOUTH ONCE DAILY Rx Instructions: TAKE 1 TABLET BY MOUTH ONCE DAILY folic acid 1 mg tablet See Rx Instructions .ROUTE .COMPLEX Qty: 90 3RF Dose Instruction: TAKE 1 TABLET BY MOUTH ONCE DAILY Rx Instructions: TAKE 1 TABLET BY MOUTH ONCE DAILY losartan-hydrochlorothiazide [Hyzaar] 100-25 mg tablet 1 tab PO DAILY Qty: 90 3RF omeprazole 40 mg capsule,delayed release(DR/EC) See Rx Instructions .ROUTE .COMPLEX Qty: 90 3RF Dose Instruction: TAKE 1 CAPSULE BY MOUTH ONCE DAILY FOR GERD Rx Instructions: TAKE 1 CAPSULE BY MOUTH ONCE DAILY FOR GERD oxycodone 10 mg tablet 10 mg PO QID PRN (Reason: pain) Qty: 120 0RF QNASL 80 mcg/actuation HFA aerosol inhaler 2 spray intranasal DAILY Qty: 10.6 2RF Rx Instructions: administer into one nostril Referrals Follow up/Referrals: Mariana Miller PA [Primary Care Provider] - See instructions Activity Restrictions/Add. Instructions Additional Instructions/Restrictions: Call your family doctor to establish care for this visit to the emergency department and schedule follow-up within 48 hours to ensure improvement. If you have any worsening of your condition or any other concerning signs or symptoms, return to the emergency department or your primary care doctor for further evaluation. Keflex twice daily for 5 days. Permethrin head to toe excluding hair and avoiding eyes and mouth as prescribed. Repeat 2 weeks later if bites still remain. Talk to others who live in the house if they begin to have bite similar, talk to the family doctor for similar cream. Clinical Impressions Clinical Impression: Bug bite, History of scabies, Cellulitis of hand Instructions Patient Instructions: DI for Skin Abscess Discharge ED Provider: Edgar Gilmore General Adult HPI General Chief complaint: Skin/Abscess/Foreign Body Stated complaint: Right had swelling X2days Time Seen by Provider: 01/25/24 23:01 Mode of Arrival: Family Vehicle Source of Information: Patient Limitations: No Limitations Description of Symptoms (Recalled from ER Triage Doc. by RN): right hand swollen and tight. a couple of red spots. no obvious bites. afebrile. no n/v/d. History of Present Illness HPI narrative: This is a 54-year-old male with history of hypertension, stage IV lung cancer not currently on chemotherapy, glioblastoma, resultant vertigo and hearing loss presenting with rash. Patient states that he has had red spots and rash crop up over the past couple of days. Has some on his left upper extremity, right upper extremit near the wrist, webs of fingers. It is itching, acosta. He has since developed redness and swelling in the webs of some of his fingers. States that nobody else in his house, that he knows of, has similar things. Nothing makes it better or worse. Related Data Previous Rx's Medication Instructions Recorded lorazepam 1 mg tablet (Ativan) 1 mg PO TID PRN anxiety 30 days 10/25/23 #90 tabs beclomethasone dipropionate 80 2 spray intranasal DAILY allergies 11/15/23 mcg/actuation nasal HFA inhaler #10.6 grams (QNASL) albuterol sulfate 2.5 mg/3 mL 2.5 mg (3 mL) inhalation Q4-6H 12/02/23 (0.083 %) solution for nebulization #180 mL albuterol sulfate 90 mcg/actuation See Rx Instructions .Route 12/02/23 aerosol inhaler (Ventolin HFA) .COMPLEX #18 grams fexofenadine 180 mg tablet See Rx Instructions .Route 12/02/23 (Allergy Relief (fexofenadine)) .COMPLEX #90 tabs folic acid 1 mg tablet See Rx Instructions .Route 12/02/23 .COMPLEX #90 tabs losartan 100 1 tab PO DAILY #90 tabs 12/02/23 mg-hydrochlorothiazide 25 mg tablet (Hyzaar) omeprazole 40 mg capsule,delayed See Rx Instructions .Route 12/02/23 release .COMPLEX #90 caps oxycodone 10 mg tablet 10 mg PO QID PRN pain #120 tabs 12/02/23 cephalexin 500 mg capsule 1,000 mg (2 x 500 mg) PO BID 5 01/25/24 days #20 caps permethrin 5 % topical cream 1 applic topical ONCE 2 doses #60 01/25/24 grams Allergies Allergy/AdvReac Type Severity Reaction Status Date / Time codeine [CODEINE] Allergy Unknown Verified 12/31/23 15:02 Penicillins [PENICILLINS] Allergy Unknown Verified 12/31/23 15:02 lisinopril AdvReac Mild Cough Verified 12/31/23 15:02 [facility] Disclaimer: The information contained in this section may have been updated after the patient was seen, as this information can be updated by other users. Medical History (Updated 01/25/24 @ 23:26 by Edgar Gilmore MD) Hearing loss Vertigo Confusion Weakness Surgical History Hx of brain surgery Family History Mother Diabetes Social History Smoking Status: Unknown if ever smoked alcohol intake: never substance use type: marijuana current occupational status: disabled Travel in the last 8 weeks: None household members: family housing: house ROS Obtained: Yes All systems reviewed & no additional complaints except as documented Physical Exam General General appearance: alert and in no apparent distress Head Head exam: atraumatic and normocephalic Eye Eye exam: Present normal appearance, PERRL and EOMI ENT ENT exam: Present mucous membranes moist Neck Neck exam: Present normal inspection, full ROM and trachea midline Respiratory Respiratory exam: Absent respiratory distress, wheezes, stridor, accessory muscle use or prolonged expiratory phase Cardiovascular Cardiovascular exam: Present normal rhythm Abdominal Exam Abdominal exam: Present soft; Absent distention, tenderness, guarding, rebound or rigidity Extremities Exam Extremities exam: Present other (Linear score lesions in webspace of second and third finger of right hand. Patient also has linear punctate, erythematous bites on creases of right wrist and near axilla); Absent edema Neurological Exam Neurological exam: Present alert, oriented X3, CN II-XII intact and normal gait; Absent motor sensory deficit Skin Skin exam: Present warm and dry; Absent diaphoresis or erythema Medical Decision Making Medical Records Medical records reviewed: Yes I reviewed the patient's medical records. Shawn Inquiry Pt receiving controlled substance: No Shawn was queried for this patient: No Vital Signs: 01/25/24 21:34 01/25/24 23:43 Temperature 98.1 F 98.8 F Temperature Source Oral Oral Pulse Rate 78 Pulse Rate [Left Brachial] 111 H Respiratory Rate 17 19 Blood Pressure 152/78 H Blood Pressure [Left Arm] 156/97 H Blood Pressure Mean [Left Arm] 116 Blood Pressure Source Automatic Cuff Blood Pressure Source [Left Arm] Automatic Cuff Blood Pressure Position Sitting Blood Pressure Position [Left Arm] Sitting 02 Sat by Pulse Oximetry 98 Oxygen Delivery Method Room Air Room Air Orders (Tests/Meds): ED MEDICATIONS Discontinued Medications Generic Name Dose Route Start Last Admin Trade Name Freq PRN Reason Stop Dose Admin Cephalexin HCl 1,000 mg 01/25/24 23:23 01/25/24 23:27 Cephalexin 500mg Capsule PO 01/25/24 23:24 1,000 mg ONCE ONE Administration ORDERS Category Date Time Status XR hand RT min 3V Stat Exams 01/25/24 21:43 Completed Medical Decision Narrative: This is a 54-year-old male with history of hypertension, stage IV lung cancer not currently on chemotherapy, glioblastoma, resultant vertigo and hearing loss presenting with rash. Patient states that he has had red spots and rash crop up over the past couple of days. Has some on his left upper extremity, right upper extremit near the wrist, webs of fingers. It is itching, acosta. He has since developed redness and swelling in the webs of some of his fingers. States that nobody else in his house, that he knows of, has similar things. Nothing makes it better or worse. History was obtained via conversation with patient. On arrival, patient hemodynamically stable, alert, oriented x4, appropriate, GCS 15, moving all extremities spontaneously, pupils equal and reactive to light. Full physical exam performed and significant for numerous linear, erythematous, excoriated lesions on patient's hand, wrist, axilla. He does have redness and warmth about the webspace of his right second and third finger concerning for developing cellulitis. Differential includes scabies, chiggers, cellulitis, bedbug bites, among others. Patient was given 1 g Keflex p.o. for symptomatic management and correction of underlying abnormalities. This most likely represents scabies versus other mite bites. Because patient very well-appearing with no systemic signs or symptoms and afebrile, nontachycardic on my exam, deemed appropriate for outpatient management. Patient will be given Keflex and permethrin cream for home-going. Return precautions were discussed. Because patient at baseline without signs or symptoms of clinical decompensation, deemed appropriate for discharge. Results were relayed to patient who voiced understanding and were agreeable to outpatient management and follow up. At the time of discharge the patient was hemodynamically stable, tolerating PO, and mobilizing appropriately. Critical Care Critical Care Time Critical Care Time: No
[2024-01-25 23:43] VITALS: BP 152/78; PULSE 78; RESP 19; TEMP 37.1; O2SAT 98
== END 2024-01-25 23:45 | disposition home or self-care (01) ==
PROVIDERS: Emergency Provider Emergency Medicine; PCP Physician Assistant
DX: L03.113 Cellulitis of right upper limb (principal); S60.56 Insect bite (nonvenomous) of hand; I10 Essential (primary) hypertension; C34.90 Malignant neoplasm of unspecified part of unspecified bronchus or lung; H91.90 Unspecified hearing loss, unspecified ear; W57.XXXS Bitten or stung by nonvenomous insect and other nonvenomous arthropods, sequela
CPT/HCPCS: 73130; 99283

== ENCOUNTER 2024-02-21 08:05 | Outpatient (CLI) | payer OTHER, SELFPAY ==
[2024-02-21 18:11] LABS: Basophils # 0.1 K/mm3 (0-0.2); Basophils % 1.1 % (0.1-2.0); Eosinophils # 0.2 K/mm3 (0.0-0.4); Eosinophils % 1.7 % (0.1-12.0); Hematocrit 47.2 % (42.0-52.0); Hemoglobin 15.6 g/dL (14.1-18.0); Lymphocytes # 2.3 K/mm3 (0.7-4.5); Lymphocytes % 23.4 % (10-50); Mean Corpuscular Hemoglobin 28.3 pg (27.0-31.2); Mean Corpuscular Volume 85.8 fl (80-94); Mean Platelet Volume 9.2 fl (7.4-10.4); Monocytes # 0.6 K/mm3 (0.1-1.0); Monocytes % 6.1 % (1.7-9.3); Neutrophils # 6.6 K/mm3 (1.8-7.8); Neutrophils % 67.7 % (37.0-80.0); Platelet Count 243 K/mm3 (142-424); Red Blood Count 5.49 M/mm3 (4.60-6.20); Red Cell Distribution Width 14.8 % (11.5-17.5); White Blood Count 9.7 K/mm3 (4.8-10.8)
[2024-02-21 18:14] LABS: Alanine Aminotransferase 30 U/L (12-78); Albumin Level 4.4 g/dl (3.5-5.0); Albumin/Globulin Ratio 1.5 (1.1-1.8); Alkaline Phosphatase 100 U/L (38-126); Anion Gap 11.9 mEq/L (5-15); Aspartate Amino Transferase 37 U/L (17-59); Bilirubin,Total 0.7 mg/dl (0.2-1.3); Blood Urea Nitrogen 17 mg/dl (9-20); Calcium 9.4 mg/dl (8.4-10.2); Carbon Dioxide 29 mmol/L (22.0-30.0); Chloride 101 mmol/L (98-107); Estimated Glomerular Filt Rate 87 ml/min (>60); GFR (African American) 106 ML/MIN (>60); Glucose 144 mg/dl (74-100); Potassium 3.9 mmoL/L (3.5-5.1); Sodium 138 mmol/L (136-145); Total Protein,Serum 7.4 g/dl (6.3-8.2)
[2024-02-21 18:39] LABS: Hemoglobin A1C 6.6 % (4.0-6.0)
[2024-02-21 18:47] LABS: Thyroid Stimulating Hormone 1.22 uIU/mL (0.465-4.68)
== END 2024-02-21 23:59 | disposition home or self-care (01) ==
LOC: LAB.DROPOF 02-23 08:05
PROVIDERS: PCP Internal Medicine; Visit Provider Internal Medicine
DX: B02.9 Zoster without complications (principal); Z79.899 Other long term (current) drug therapy
CPT/HCPCS: 80053; 83036; 84443; 85025

== ENCOUNTER 2024-10-15 12:37 | Outpatient (CLI) | payer OTHER, SELFPAY ==
[2024-10-15 13:19] LABS: Basophils # 0.1 K/mm3 (0-0.2); Basophils % 0.9 % (0.1-2.0); Eosinophils # 0.2 K/mm3 (0.0-0.4); Eosinophils % 2.9 % (0.1-12.0); Hematocrit 44.3 % (42.0-52.0); Lymphocytes # 1.8 K/mm3 (0.7-4.5); Lymphocytes % 26.3 % (10-50); Mean Corpuscular HGB Conc 33.8 g/dL (31.8-35.4); Mean Corpuscular Hemoglobin 28.6 pg (27.0-31.2); Mean Corpuscular Volume 84.4 fl (80-94); Monocytes # 0.4 K/mm3 (0.1-1.0); Monocytes % 5.7 % (1.7-9.3); Neutrophils # 4.4 K/mm3 (1.8-7.8); Neutrophils % 64.2 % (37.0-80.0); Platelet Count 207 K/mm3 (142-424); Red Blood Count 5.24 M/mm3 (4.60-6.20); Red Cell Distribution Width 14.7 % (11.5-17.5); White Blood Count 6.8 K/mm3 (4.8-10.8)
[2024-10-15 13:28] LABS: D-Dimer 0.44 ug/mL (0.0-0.5)
[2024-10-15 13:41] LABS: Alanine Aminotransferase 33 U/L (12-78); Albumin Level 4.3 g/dl (3.5-5.0); Alkaline Phosphatase 93 U/L (38-126); Anion Gap 10.9 mEq/L (5-15); Aspartate Amino Transferase 38 U/L (17-59); Bilirubin,Direct 0.4 mg/dl (0.0-0.4); Bilirubin,Indirect 0.3 mg/dL (0.0-0.9); Bilirubin,Total 0.7 mg/dl (0.2-1.3); Bilirubin,Unconjugated 0.3 mg/dL (0.0-1.1); Blood Urea Nitrogen 16 mg/dl (9-20); Calcium 9.6 mg/dl (8.4-10.2); Carbon Dioxide 32 mmol/L (22.0-30.0); Chloride 101 mmol/L (98-107); Chol/HDL Ratio 6.1 (1-3.5); Cholesterol 194 mg/dl (140-200); Estimated Glomerular Filt Rate 77 ml/min (>60); GFR (African American) 94 ML/MIN (>60); Glucose 126 mg/dl (74-100); HDL Cholesterol 32 mg/dl (40-60); Magnesium 1.8 mg/dl (1.6-2.3); Potassium 3.9 mmoL/L (3.5-5.1); Sodium 140 mmol/L (136-145); Total Protein,Serum 6.8 g/dl (6.3-8.2); Triglycerides 249 mg/dl (30-150); VLDL Cholesterol 50 mg/dL (0-40)
[2024-10-15 13:49] LABS: Free T4 (Free Thyroxine) 1.12 ng/dl (0.78-2.19)
[2024-10-15 13:53] LABS: NT Pro Brain Natriuretic Pep. 124 pg/mL (0-125)
[2024-10-15 13:57] LABS: Troponin I < 0.01 ng/ml (0.00-0.034)
[2024-10-15 14:00] LABS: Direct LDL Cholesterol 118.04 mg/dL (100-129)
[2024-10-15 14:12] LABS: Thyroid Stimulating Hormone 1.11 uIU/mL (0.465-4.68)
== END 2024-10-15 23:59 | disposition home or self-care (01) ==
LOC: LAB 12:38
PROVIDERS: PCP Nurse Practitioner; Visit Provider Nurse Practitioner Family
DX: E78.2 Mixed hyperlipidemia (principal); R06.09 Other forms of dyspnea; I10 Essential (primary) hypertension; R00.0 Tachycardia, unspecified
CPT/HCPCS: 36415; 80048; 80061; 80076; 83735; 83880; 84439; 84443; 84484; 85025; 85378